=== PATIENT | male | born 1945 | race Caucasian/White ===

== ENCOUNTER 2016-12-23 07:31 | Day surgery (SDC) | payer MEDICARE ==
[~2016-12-23] VITALS: Ht 165.1 cm; Wt 73.8 kg
[~2016-12-23 07:31] MED LIST: AMLO5TAB2 PO; ASPI-557 PO; CHOL100092 PO; CYCL-83 PO; ESOM20SU PO; ESZO3TAB PO; FISH1CAP59 PO; HYDR-4246 PO; LIDOCAINE 1% (10mg/ml) 2ml SDV INJ ONE; LISI-621 PO; LR 1,000 ML IV SCH; MECL-103 PO; MELO-28 PO; METO-230 PO; MULT-933 PO; POLY17PO6 PO
--- OUTSIDE RECORDS SUMMARY | 2016-12-23 07:35 | XMS REPORT | Continuity of Care Document ---
Author Author [facility] Organization [facility] Address Unknown Phone Unavailable Support Name Relationship Address Phone AUSTYN ZAPIEN FACS, MD Caregiver [address] [place] [address] [place] [phone] SERGIO DIAZ MD Caregiver [address] [place] [address] [place] [phone] VISHNU CLEVELAND Next Of Kin [address] [place] [address] Insurance Providers Payer Name Policy Number Subscriber Name Relationship Medicare [id number] AlinaGene R 18 Self [facility] [id number] AlinaGene R 18 Self Advance Directives Directive Response Recorded Date/Time Dr Khan Resuscitation Status Full Code 11/28/14 2:51pm Resuscitation Documents on File No 11/28/14 2:20pm Problems No known problems or medical conditions. Medications Medication Dose Route Sig Days/Qty Instructions Order Date Discontinued Date Status Cyclobenzaprine Hcl 10 Mg PO NEEDED 06/17/11 Active Meloxicam 7.5 Mg PO TWICE A DAY 06/17/11 Active Esomeprazole Mag Trihydrate 20 Mg PO TWICE A DAY 06/17/11 Active Lamotrigine 150 Mg PO TWICE A DAY 06/17/11 Active Eszopiclone 2 Mg PO NEEDED 06/17/11 Active Cholecalciferol 1,000 Unit PO DAILY 06/17/11 Active Fish Oil/Gilman-3 Fatty Acids 1 Cap PO DAILY 06/17/11 Active Social History Social History Problem Response Recorded Date/Time Chewing Tobacco Status No 11/25/2013 10:24am Hx Substance Use No 11/28/2014 2:13pm Hx Alcohol Use N ALCOHOLISM SOBER 40 YEARS 11/28/2014 2:13pm Has the pt used tobacco in the last 12 months No 12/01/2014 7:05am Query Response Start Date Stop Date Smoking Status Former smoker Hospital Discharge Instructions No hospital discharge instructions. Plan of Care No plan of care. Functional Status No functional status results. Allergies, Adverse Reactions, Alerts Allergen Type Severity Reaction Status Last Updated No Known Drug Allergies Allergy Active 06/17/11 Immunizations Name Given Type Hx Influenza Vaccination Y FALL 2013 Historical Hx Pneumococcal Vaccination No Historical Hx Influenza Vaccination Y FALL 2013 Historical Vital Signs Acute Vital Signs Vital Response Date/Time Temperature (Fahrenheit) 98.9 deg F (96.8 - 99.1) Temperature (Calculated Celsius) 37.26596 degrees C (36.0 - 37.3) Temperature Source Temporal Pulse Rate (adult) 62 bpm (60 - 100) Respiratory Rate 16 breaths/min (10 - 20) O2 Sat by Pulse Oximetry 95 % (90 - 100) Oxygen Delivery Method Room Air Blood Pressure 166/91 mm Hg Blood Pressure Source Automatic Cuff Height 5 ft 6 in Weight 164 lb Body Mass Index 26.0 kg/m^2 Results Test Source Date Result Interp. Ref. Range Comments Anion Gap August 17, 2011 8:03am 8 MEQ/L N 5-15 BUN/Creatinine Ratio August 17, 2011 8:03am 11 RATIO N 6-26 Basophils # (Auto) August 17, 2011 8:03am 0.0 T/MM3 N 0-0.2 Basophils (%) (Auto) August 17, 2011 8:03am 0.2 % N 0-2 Blood Urea Nitrogen August 17, 2011 8:03am 10.0 MG/DL N 9-20 Calcium Level August 17, 2011 8:03am 8.3 MG/DL L 8.4-10.2 Calculated Osmolality August 17, 2011 8:03am 267 MOSM/KG N 261-280 Carbon Dioxide Level August 17, 2011 8:03am 28 MEQ/L N 22-30 Chloride Level August 17, 2011 8:03am 103 MEQ/L N 98-107 Creatinine August 17, 2011 8:03am 0.9 MG/DL N 0.8-1.5 Eosinophils # (Auto) August 17, 2011 8:03am 0.1 T/MM3 N 0-0.5 Eosinophils (%) (Auto) August 17, 2011 8:03am 0.4 % N 0-4 Glucose Level August 17, 2011 8:03am 100 MG/DL N 75-110 Hematocrit August 17, 2011 8:03am 33.5 % L 41-53 Hemoglobin August 17, 2011 8:03am 10.7 GM/DL L 13.5-17.5 Lymphocytes # (Auto) August 17, 2011 8:03am 1.4 T/MM3 N 1-4.8 Lymphocytes (%) (Auto) August 17, 2011 8:03am 10.0 % L 23-45 Mean Corpuscular Hemoglobin August 17, 2011 8:03am 22.3 UUG L 26-34 Mean Corpuscular Hemoglobin Concent August 17, 2011 8:03am 31.9 GM/DL N 31-37 Mean Corpuscular Volume August 17, 2011 8:03am 69.9 UM3 L 80-100 Mean Platelet Volume August 17, 2011 8:03am 9.6 UM3 N 9.4-12.4 Monocytes # (Auto) August 17, 2011 8:03am 1.4 T/MM3 H 0-0.8 Monocytes (%) (Auto) August 17, 2011 8:03am 10.1 % H 0-9.0 Neutrophils # (Auto) August 17, 2011 8:03am 11.1 T/MM3 H 1.8-7.7 Neutrophils (%) (Auto) August 17, 2011 8:03am 79.1 % H 33-66 Platelet Count August 17, 2011 8:03am 377 T/MM3 N 130-400 Potassium Level August 17, 2011 8:03am 3.7 MEQ/L N 3.6-5 RDW Standard Deviation August 17, 2011 8:03am 42.7 FL N 36.9-50.2 Red Blood Count August 17, 2011 8:03am 4.79 M/MM3 N 4.50-5.90 Sodium Level August 17, 2011 8:03am 139 MEQ/L N 134-144 White Blood Count August 17, 2011 8:03am 14.1 T/MM3 H 4.5-11.0 Glomerular Filtration Rate Calc August 17, 2011 8:03am 84 - Immature Granulocyte # (Auto) August 17, 2011 8:03am 0.03 T/MM3 N 0.00 -0.03 Immature Granulocyte % (Auto) August 17, 2011 8:03am 0.2 % N 0.0-0.5 Procedures Procedure Status Date Provider(s) Esophagogastroduodenoscopy (EGD) with closed biopsy completed 12/01/14 AUSTYN ZAPIEN MD, FACS, CWS
--- OUTSIDE RECORDS SUMMARY | 2016-12-23 07:35 | XMS REPORT | Referral Summary ---
Author Author [facility] Organization [facility] Address Unknown Phone Unavailable Care Team Providers Care Extrusion Machine Operator Name Role Phone Salas Urena Primary Care Physician [phone] Encounter [facility] [id number] Date(s): 11/04/15 - 11/04/15 [facility] [address] [place] [address] Discharge Diagnosis: Tinea corporis Discharge Diagnosis: Ibarra's esophagus Discharge Diagnosis: Gastroesophageal reflux disease Discharge Diagnosis: Benign positional vertigo Discharge Diagnosis: Benign essential HTN Discharge Disposition: 01-Home or Self Care Attending Physician: Domenico Urena MD Admitting Physician: Domenico Urena MD Vital Signs Most recent to 1 oldest [Reference Range]: Temperature Tympanic 34.9 degC [36.6-38.1 degC] *LOW* (11/04/15 8:33 AM) Peripheral Pulse 76 bpm Rate [60-100 bpm] (11/04/15 8:33 AM) Blood Pressure 122/70 mmHg [90-140/60-90 mmHg] (11/04/15 8:33 AM) Problem List Condition Effective Dates Status Health Status Informant Alcoholism(Confirmed Active ) Ibarra's esophagus Active (disorder)(Confirmed ) Chicken Active pox(Confirmed) Generalized Active osteoarthritis (disorder)(Confirmed ) Depression(Confirmed Active ) Dysphagia Active (disorder)(Confirmed ) Gastroesophageal Active reflux disease (disorder)(Confirmed ) Head Active trauma(Confirmed) Hearing Active loss(Confirmed) Hiatal 2010 Active hernia(Confirmed) Hip 1989 Active fracture(Confirmed) Injury(Confirmed)1 Active Osteoarthritis(Confi Active rmed) Colon cancer 2008 Active Screening(Confirmed) 1head trama Allergies, Adverse Reactions, Alerts No Known Medication Allergies Medications Ambien 5 mg oral tablet 5 mg 1 tabs, Oral, Bedtime (once a day), as needed for sleep, [place] [address] [place] [address], # 30 tabs, 0 Refill(s) Start Date: 11/04/15 Status: Ordered amLODIPine 10 mg oral tablet 10 mg 1 tabs, Oral, Daily, PT. IS DUE FOR A MED. CK APPT., # 30 tabs, 0 Refill(s ), Pharmacy: [facility] #[id number], 1 tabs Oral Daily,Instr:PT. IS DUE FOR A MED. CK APPT. Start Date: 10/28/15 Status: Ordered aspirin 81 mg oral tablet 1 tabs, Oral, Daily, # 90 tabs, 0 Refill(s) Start Date: 06/17/14 Status: Ordered Augmentin XR Oral, q12hr, 0 Refill(s) Start Date: 10/05/15 Status: Ordered cyclobenzaprine 10 mg oral tablet See Instructions, TAKE ONE TABLET BY MOUTH THREE TIMES A DAY NEEDED, # 40 tabs, 1 Refill(s), eRx: [facility] #[id number], TAKE ONE TABLET BY MOUTH THREE TIMES A DAY NEEDED Start Date: 10/19/15 Status: Ordered Fish Oil 1200 mg oral capsule caps, Oral, TID, 0 Refill(s) Start Date: 06/17/14 Status: Ordered lisinopril 20 mg oral tablet 20 mg 1 tabs, Oral, Daily, PT. IS DUE FOR A MED. CK VISIT., # 30 tabs, 0 Refill( s), Pharmacy: [facility] #[id number] Start Date: 10/28/15 Status: Ordered Lotrisone 1%-0.05% topical cream 1 kisha, Topical, BID, # 30 g, 0 Refill(s), Pharmacy: [facility] #[id number] Start Date: 11/04/15 Status: Ordered meclizine TID, as needed for dizziness, 0 Refill(s) Start Date: 10/05/15 Status: Ordered Mobic 7.5 mg oral tablet See Instructions, TAKE ONE TABLET BY MOUTH TWICE A DAY, # 60 tabs, 1 Refill(s), eRx: [facility] #[id number], TAKE ONE TABLET BY MOUTH TWICE A DAY Start Date: 09/28/15 Status: Ordered multivitamin Daily, 0 Refill(s) Start Date: 06/17/14 Status: Ordered NexIUM 20 mg oral delayed release capsule See Instructions, TAKE ONE CAPSULE BY MOUTH TWICE A DAY, # 60 caps, 5 Refill(s) , eRx: [facility] #[id number], TAKE ONE CAPSULE BY MOUTH TWICE A DAY Start Date: 06/01/15 Status: Ordered [place] 5 mg-325 mg oral tablet See Instructions, take 1-2 tablets by mouth every 6hours as needed, # 60 tabs, 0 Refill(s) Start Date: 11/04/15 Status: Ordered polyethylene glycol 3350 oral powder for reconstitution See Instructions, MIX 1 CAPFUL (17G) WITH 8 OUNCES OF WATER, JUICE, SODA, COFFEE , OR TEA AND DRINK DAILY, # 527 unknown unit, 5 Refill(s), eRx: [facility] #[id number], MIX 1 CAPFUL (17G) WITH 8 OUNCES OF WATER, JUICE, SODA, COFFEE , OR TEA AND DRINK... Start Date: 06/01/15 Status: Ordered Vitamin D3 1000 intl units oral tablet 1 tabs, Oral, Daily, # 30 tabs, 0 Refill(s) Start Date: 06/17/14 Status: Ordered Results No data available for this section Immunizations Vaccine Date Refusal Reason influenza virus vaccine, inactivated 06/07/14 influenza virus vaccine, live 06/28/13 influenza virus vaccine, live 10/06/12 tetanus/diphtheria/pertussis, acel(Tdap) 10/12/13 Procedures Procedure Date Related Diagnosis Body Site Esophagogastroduodenoscopy and biopsy1 12/01/14 Esophagogastroduodenoscopy2 2013 Esophagogastroduodenoscopy3 2012 Esophagogastroduodenoscopy 06/2011 Colonoscopy4 04/2009 Bone graft5 1989 Hip replacement6 1988 Appendectomy 1957 Ricardo fundoplication Vasectomy 1No Cancer Given th fact Pathology unable to state if Dysplasia present Repeat EGD 1yr. 2with circumferential biopies 3with bx, consistent with Ibarra's, stay on PPI, repeat in [address] Kaushal vallecillo 5left hip 6left Social History Social History Type Response Smoking Status Former smoker; Type: Cigarettes; Total pack years: 30 Assessment and Plan Extracted from: Title: Office Visit Note Author: Domenico Urena MD Date: 11/04/15 Assessment/Plan Ibarra's esophagus, Ibarra's esophagus without dysplasia He is scheduled for EGD and follow up with Dr. Maggy Marcano. I encouraged him to keep that appointment. Ordered: Office Visit Level 4 Est 79895 Benign essential HTN, Essential (primary) hypertension Blood pressure appears to be well controlled. No change in current treatment recommended. Follow-up in 3 months. Ordered: Office Visit Level 4 Est 78345 Benign paroxysmal vertigo, unspecified ear, Benign positional vertigo Overall this is improving I thinkgiving it more time hisappropriate. I see no obvious signs of sinus infection. No further treatment at this time. Ordered: Office Visit Level 4 Est 49253 Gastro-esophageal reflux disease without esophagitis, Gastroesophageal reflux disease Chronic stable no change in current treatment. Ordered: Office Visit Level 4 Est 10034 Tinea corporis Lotrisone cream applied twice a day until clear Orders: clotrimazole-betamethasone topical, 1 kisha, Topical, BID, # 30 g, 0 Refill(s), Pharmacy: [facility] #[id number] HYDROcodone-acetaminophen, See Instructions, take 1-2 tablets by mouth every 6hours as needed, # 60 tabs, 0 Refill(s) zolpidem, 5 mg 1 tabs, Oral, Bedtime (once a day), as needed for sleep, [address], # 30 tabs, 0 Refill(s) Seborrheic keratoses He'll make an appointment to have these frozen in the next few weeks. Insomnia Discontinue Lunesta tryAmbien 5 mg daily at bedtime.
--- OUTSIDE RECORDS SUMMARY | 2016-12-23 07:35 | XMS REPORT | Summary of Care ---
Author Author Jay Jay Kathleen M.D. Unknown Address Unknown Phone Unavailable Care Team Providers Care Administrative Specialist Name Role Phone Hever Cano, Madie Unavailable Unavailable Kaushal Cano, YARIEL, ,, A Unavailable Unavailable No Assigned PCP-Pt Confirmed Unavailable Unavailable Unavailable Unavailable Functional Status Name Dates Details Functional status health issues are not documented Status: Name Dates Details Cognitive status health issues are not documented Status: Problems Name Dates Details Ibarra's esophagus (530.85, K22.70) Status: Active Dizziness (780.4, R42) Status: Active Chronic sinusitis (473.9, J32.9) Status: Active Bilateral impacted cerumen (380.4, H61.23) Status: Active Medications Name Dates Details PriLOSEC 20 MG CPDR Active Zantac 150 Maximum Strength TABS * Refills: 0 Active LaMICtal 150 MG Oral Tablet * Refills: 0 Active Fish Oil 1200 MG Oral Capsule * Refills: 0 Active Psyllium 500 MG CAPS * Refills: 0 Active Metoclopramide HCl - 10 MG Oral Tablet TAKE 1 TABLET 4 TIMES DAILY, BEFORE MEALS AND AT BEDTIME. * Quantity: 120 Refills: 0 Kaushal Cano, YARIEL, , , Chavarria A * Start Active NexIUM 40 MG Oral Capsule Delayed Release TAKE 1 CAPSULE DAILY. * Quantity: 30 Refills: 3 Kaushal Yanez., FACS, , , Chavarria A * Start Active Golytely 236 GM Oral Solution Reconstituted TAKE DIRECTED. * Quantity: 1 Refills: 0 Kaushal Yanez., FACS, , , Chavarria A * Start Active 4000 ML Bottle Citrate of Magnesia Oral Solution 1 BOTTLE DIRECTED * Quantity: 1 Refills: 0 Kaushal Yanez., FACS, , , Chavarria A * Start Active 300 ML Bottle Allergies and Adverse Reactions Name Dates Details No Known Drug Allergies (Allergy) Status: Active Past Medical History Name Dates Details History of hiatal hernia (V12.79, Z87.19) Status: Resolved Procedures Procedure Dates Details History of Surgery Vas Deferens Vasectomy History of Appendectomy History of Hip Surgery Procedures not documented Immunization Name Dates Details Immunizations not documented Family History Name Dates Details Family history of Acute Myocardial Infarction (V17.3) Status: Active Name Dates Details Family history of Cancer Status: Active Social History Name Dates Details - Status: Name Dates Details Former smoker Vital Signs Date Test Result Details No Known Vitals to report Results Date Description Value Details Results not documented Plan of Care Name Dates Details Planned Observations Planned Goals not documented Instructions Name Dates Details Instructions not documented Encounters Appointment; Jay Jay Kathleen M.D. Encounter Diagnosis: Problem not documented On 07-Oct-2015 14:45
--- OUTSIDE RECORDS SUMMARY | 2016-12-23 07:36 | XMS REPORT ---
Author Author [facility] SYSTEM Organization Unknown Address Unknown Phone Unavailable Care Team Providers Care Fitness Attendant Name Role Phone [facility] Unavailable Reason For Visit Reason for Visit from 09/29/2015 1:18 PM:* Pt Stated Reason for Adm : vertigo, bilateral sinusitis Chief Complaint VERTIGO, BILATERAL FRONTAL AND EGHMOID,SINUSITIS Social History Social History from 09/30/2015 11:54 AM:* Tobacco Use? : Former Smoker Social History from 09/29/2015 1:18 PM:* Tobacco Use? : Former Smoker Functional Status Functional Status from 09/30/2015 9:20 AM:* LOC : Alert * Oriented To : Person,Place,Time,Event * Weight Bearing Status : Full * Assist Level : Partial * # Assists : 1 Functional Status from 09/29/2015 8:05 PM:* LOC : Alert * Oriented To : Person,Place,Time,Event * Weight Bearing Status : Full * Assist Level : Partial * # Assists : 1 Functional Status from 09/29/2015 1:18 PM:* LOC : Alert * Oriented To : Person,Place,Time,Event * Weight Bearing Status : Full * Assist Level : Independent * # Assists : 1 Vital Signs Hospital Vital Signs from 09/30/2015 11:27 AM:* Height : 5/6 ft,in * Temperature : 98.0 F * Pulse : 96 * Respirations : 20 * BP : 157/94 Hospital Vital Signs from 09/30/2015 10:04 AM:* Height : 5/6 ft,in Hospital Vital Signs from 09/30/2015 7:35 AM:* Height : 5/6 ft,in * Temperature : 96.5 F * Pulse : 93 * Respirations : 20 * BP : 189/103 Hospital Vital Signs from 09/30/2015 4:05 AM:* Heart Rate : 98 Hospital Vital Signs from 09/30/2015 3:25 AM:* Weight : 74.4/ kg * Height : 5/6 ft,in * Temperature : 97.1 F * Pulse : 95 * Respirations : 20 * BP : 139/97 Hospital Vital Signs from 09/29/2015 11:32 PM:* Heart Rate : 89 Hospital Vital Signs from 09/29/2015 10:05 PM:* Height : 5/6 ft,in * Temperature : 98.1 F * Pulse : 88 * Respirations : 20 * BP : 134/70 Hospital Vital Signs from 09/29/2015 8:05 PM:* Heart Rate : 93 Hospital Vital Signs from 09/29/2015 7:07 PM:* Height : 5/6 ft,in * Temperature : 98.5 F * Pulse : 90 * Respirations : 20 * BP : 179/92 Hospital Vital Signs from 09/29/2015 3:30 PM:* Height : 5/6 ft,in * Temperature : 98.1 F * Pulse : 72 * Respirations : 20 * BP : 204/108 Hospital Vital Signs from 09/29/2015 1:18 PM:* Weight : 74.7/ kg * Height : 5/6 ft,in Hospital Vital Signs from 09/29/2015 1:05 PM:* Weight : 74.7/ kg * Height : 5/6 ft,in * Temperature : 97.9 F * Pulse : 77 * Respirations : 20 * BP : 200/103 Results Chemistry from 09/30/2015 5:17 AMSODIUM 136 MMOL/L (136-145 MMOL/L) POTASSIUM 3.8 MMOL/L (3.5-5.1 MMOL/L) CHLORIDE 102 MMOL/L (98-107 MMOL/L) TCO2 25.2 MMOL/L (21.0-32.0 MMOL/L) *ANION GAP 8.8 MMOL/L (8.0-16.0 MMOL/L) BUN 16 MG/DL (7-18 MG/DL) CREATININE 0.85 MG/DL (0.70-1.30 MG/DL) *BUN/CREATININE RATIO 18.8 H (9.1-17.0 ) GLUCOSE 140 MG/DL H (65-99 MG/DL) *GFR EST NON AFR [place] 87 ML/MIN *GFRA EST AFR AMER >90 ML/MIN CALCIUM 8.5 MG/DL (8.5-10.1 MG/DL) ALBUMIN 3.6 GM/DL (3.4-5.0 GM/DL) PHOSPHORUS 2.9 MG/DL (2.6-4.7 MG/DL) Problems Encounter Diagnosis * Fall Risk Status:Active. * Nausea & Vomiting Status:Active. Encounters Encounter Diagnosis * Fall Risk Status:Active. * Nausea & Vomiting Status:Active. Plan of Care Follow-up Appointments from 09/30/2015 11:54 AM:* #1 Office appointment: : Dr Kathleen * #1 Date/Time : 10/07/2015 2:45 PM * Address # 1 : [facility]: [facility] [place], [place]- [phone] or * #2 Office appointment: : Primary care jenniferan in 1 week Procedures * Completed , on 01/12/2009 12:00 AM Immunizations No immunizations administered or ordered. Hospital Course Hospital Discharge Instructions How to care for yourself at home from 09/30/2015 11:54 AM:* Discharge Activity : Activity as tolerated,May Shower * Discharge Diet : As before hospitalization * Call your doctor if: : Fever over 101 F or severe chills,Chest pain or other unexplained symptoms,Tingling or numbness develops,A sudden increase or decrease in weight,You have persistent or worsening symptoms,If you have Heart Failure and you gain 3 pounds within 1 week or your symptoms worsen. (Weigh at home tomorrow morning) * Specific Discharge Teaching Instructions provided: : Yes * Discharge on Warfarin : No Allergies, Adverse Reactions, Alerts * No Latex Allergy. * No IV Contrast Allergy. * No Known Drug Allergies. * No Known Food Allergies. * No Known Allergies. Medication It is the responsibility of the patient or patient insurance claims representative to confirm the list of medications with either the patient's personal care provider or the patient's follow-up care provider to ensure the patient has an appropriate list of medications to take at home. Discharge medications New medications* lisinopril (Prinivil) 20 mg Tablet, Ordered By: JASE LOFTON MD Directions: 1 tablet oral daily * amLODIPine (NorvASC) 10 mg Tablet, Ordered By: JASE LOFTON MD Directions: 1 tablet oral daily every morning * amoxicillin-pot clavulanate 875 mg-125 mg Tablet, Ordered By: JASE LOFTON MD Directions: 1 tablet oral every twelve hours Additional Instructions: TAKE WITH FOOD IF STOMACH UPSET. * meclizine 25 mg Tablet, Ordered By: JASE LOFTON MD Directions: 1 tablet oral three times a day Continued medications* cyclobenzaprine 10 mg Tablet, Ordered By: JASE LOFTON MD Directions: 1 tablet oral three times a day * esomeprazole magnesium (NexIUM) 20 mg capsule,delayed release(DR/EC), Ordered By: JASE LOFTON MD Directions: 1 capsule oral twice a day * eszopiclone 3 mg Tablet, Ordered By: JASE LOFTON MD Directions: 1 tablet oral daily at bedtime PRN insomnia * meloxicam 7.5 mg Tablet, Ordered By: JASE LOFTON MD Directions: 1 tablet oral twice a day * polyethylene glycol 3350 17 gram/dose Powder, Ordered By: JASE LOFTON MD Directions: 1 each oral daily Stopped medications* None
--- OUTSIDE RECORDS SUMMARY | 2016-12-23 07:36 | XMS REPORT | Continuity of Care Document ---
Author Author David Howell MA [facility] Address [address] [place] [id number] Phone Unavailable Care Team Providers Care Bed Operator Name Role Phone Romel Domenico CHRISTY Unavailable Payers Payer name Insurance type Covered libertarian ID Authorization(s) Unknown Problems Condition Effective Dates (start - stop) Clinical Status GERD - *Chronic DYSPHAGIA NOS - *Chronic ESCOBAR'S ESOPHAGUS - *Chronic Osteoarthrosis, generalized, involving unspecified site - * Chronic Constipation - *Chronic Dysphagia - *Acute GERD - *Chronic Escobar esophagus - *Chronic ESCOBAR'S ESOPHAGUS - *Chronic Osteoarthrosis, generalized, involving unspecified site - * Chronic ESCOBAR'S ESOPHAGUS - *Chronic DYSPHAGIA NOS - *Chronic GERD - *Chronic Impacted cerumen - *Chronic Family History Family Member Diagnosis Age At Onset Status Sister (Unknown) Alcoholism Yes Son (Unknown) Alcoholism Yes Brother (Unknown) Alcoholism Yes Social History Social History Element Description Quantity Unknown Allergies, Adverse Reactions, Alerts Substance Reaction Severity Status Unknown Medications Medication Instructions Dosage Effective Dates (start - stop) Status Miralax 17 gram/dose Oral Powder take (17G) by oral route every day mixed with 8 oz. water, juice, soda, coffee or tea 17 G - Active herbal drugs tablet one twice a day - Active Mobic 7.5 mg tablet Take 1 tablet by mouth twice a day. - Active Nexium 20 mg capsule,delayed release Take 1 capsule by mouth twice a day. - Active cyclobenzaprine 10 mg tablet Take 1 tablet by mouth 3 times a day as needed. - Active [place] 5 mg-325 mg tablet TAKE 1-2 TABLETS BY MOUTH EVERY 6 HOURS NEEDED - Active Immunizations Vaccine Date Status Comments flu (split) (3 yrs or older) completed - Completed reason: public agency flu (split) (3 yrs or older) completed - Completed reason: public agency Results Test Name Date and Time Measure Units Reference Range Abnormal Flag Comments Panel Description: CBC WBC 08:48:00 7.5 K/uL 4.8-10.8 RBC 08:48:00 5.33 M/uL 4.60-6.20 HGB 08:48:00 15.1 g/dl 14.0-18.0 HCT 08:48:00 44.6 % 42.0-52.0 MCV 08:48:00 83.7 fL 82.0-99.0 MCH 08:48:00 28.3 pg 27.0-32.0 MCHC 08:48:00 33.9 g/dL 32.0-36.0 RDW 08:48:00 13.4 % 11.5-14.5 MPV 08:48:00 10.8 fL 8.8-14.8 Platelet Count 08:48:00 297 K/uL 150-400 Immature Granulocytes 08:48:00 0.1 % 0.0-1.0 Absolute Neutrophils 08:48:00 4.92 THOUS 1.90-7.00 Absolute Lymphocytes 08:48:00 1.55 THOUS 0.80-3.30 Absolute Monocytes 08:48:00 0.62 THOUS 0.30-1.00 Absolute Eosinophils 08:48:00 0.38 THOUS 0.00-0.50 Absolute Basophils 08:48:00 0.04 THOUS 0.00-0.20 Neutrophils 08:48:00 66 % 51-75 Lymphocytes 08:48:00 21 % 20-46 Monocytes 08:48:00 8 % 4-11 Eosinophils 08:48:00 5 % 0-4 H Basophils 08:48:00 1 % 0-2 Testing performed at [facility] [address] [place], [place] [id number] Parliamentary Librarian bAel Smith MD Panel Description: Chemistry Profile Glucose 08:48:00 102 mg/dL 70-99 H BUN 08:48:00 18 mg/dL 8-26 Creatinine 08:48:00 1.01 mg/dL 0.72-1.25 Calcium 08:48:00 10.0 mg/dL 8.9-10.5 Sodium 08:48:00 138 mEq/L 135-144 Potassium 08:48:00 4.9 mEq/L 3.5-5.2 Chloride 08:48:00 103 mEq/L 99-111 CO2 08:48:00 27 mEq/L 23-31 Albumin 08:48:00 4.2 g/dL 3.4-4.8 Bilirubin Total 08:48:00 0.4 mg/dL 0.2-1.2 Alkaline Phosphatase 08:48:00 104 U/L 40-150 Protein 08:48:00 7.2 g/dL 6.2-8.1 ALT (SGPT) 08:48:00 20 U/L 0-55 AST (SGOT) 08:48:00 22 U/L 5-34 Anion Gap 08:48:00 8 3-20 Globulin 08:48:00 3.0 g/dL 1.8-4.0 Testing performed at [facility] [address] [place] [id number] Parliamentary Librarian Abel Smith MD Panel Description: Lipid Profile-[facility] Cholesterol 08:48:00 208 mg/dL 0-199 H Triglycerides 08:48:00 116 mg/dL 0-149 HDL Cholesterol 08:48:00 45 mg/dL 40-84 LDL Cholesterol 08:48:00 140 mg/dL 0-130 H VLDL Cholesterol 08:48:00 23 mg/dL 0-28 Cardiac Risk 08:48:00 4.6 0.0-5.7 Testing performed at [facility] [address] [place] [id number] Parliamentary Librarian Abel Smith MD Panel Description: Non-HDL Cholesterol-[facility] Non-HDL Cholesterol 08:48:00 163 mg/dL 0-159 H Testing performed at [facility] [address] [place] [address] Parliamentary Librarian Abel Smith MD Panel Description: EGFR-[facility] eGFR 08:48:00 >60 mL/min >60 Multiply eGFR results by 1.21 for race.Testing performed at [facility] [address] [place] [address] Parliamentary Librarian Abel Smith MD Panel Description: Prostatic Specific Antigen-[facility] PSA 08:48:00 1.6 ng/mL 0.0-4.5 AUA PSA Best Practice Guidelines: Age-Adjusted PSA Values by Ethnic GroupAge Range Asians - Caucasians [id number] 0-2.0 0-2.0 0-2.550-59 0-3.0 0-4.0 0-3.560-69 0-4.0 0-4.5 0-4.570-79 0-5.0 0-5.5 0-6.5Testing performed at [facility] [address] [place] [address] Parliamentary Librarian Abel Smith MD Vital Signs Date / Time: Height Weight Pulse Rate Blood Pressure Temperature /08:09:00 65.50 in 160.00 lbs 76 /min 136/84 mm[Hg] 97.4 F Procedures Procedure Date Unknown Encounters Encounter Location Date Patient Visit [facility] Patient Visit [facility] Patient Visit [facility] Patient Visit [facility] Patient Visit [facility] Patient Visit [facility] New Surg Patient Visit [facility] Patient Visit [facility] FC ENT Patient Visit [facility] Patient Visit [facility] Advance Directives Directive Effective Date Unknown
--- OUTSIDE RECORDS SUMMARY | 2016-12-23 07:36 | XMS REPORT | Referral Summary ---
Author Author [facility], [facility] Organization [facility] Address Unknown Phone Unavailable Care Team Providers Care Sandwich Wrapper Name Role Phone Salas Urena Primary Care Physician [phone] Encounter VC Date(s): 11/30/15 - 11/30/15 [facility], [address] [place] [id number] Discharge Diagnosis: Seborrheic keratoses, inflamed Discharge Disposition: 01-Home or Self Care Attending Physician: Domenico Urena MD Admitting Physician: Domenico Urena MD Vital Signs Most recent to 1 oldest [Reference Range]: Temperature Tympanic 36.0 degC [36.6-38.1 degC] *LOW* (11/30/15 8:35 AM) Peripheral Pulse 84 bpm Rate [60-100 bpm] (11/30/15 8:35 AM) Respiratory Rate 16 br/min [14-20 br/min] (11/30/15 8:35 AM) Blood Pressure 134/80 mmHg [90-140/60-90 mmHg] (11/30/15 8:35 AM) Problem List Condition Effective Dates Status [...] a day), as needed for sleep, [address] [facility], # 30 tabs, 0 Refill(s) Start Date: 11/04/15 Status: Ordered amLODIPine 10 mg oral tablet See Instructions, TAKE ONE TABLET BY MOUTH DAILY * PT DUE FOR MED CHECK*, # 30 tabs, 2 Refill(s), eRx: [facility] #[id number], TAKE ONE TABLET BY MOUTH DAILY * PT DUE FOR MED CHECK* Start Date: 11/24/15 Status: Ordered aspirin 81 mg oral tablet 1 tabs, Oral, Daily, # 90 tabs, 0 Refill(s) Start Date: 06/17/14 Status: Ordered cyclobenzaprine 10 mg oral tablet See Instructions, TAKE ONE TABLET BY MOUTH THREE TIMES A DAY NEEDED, # 40 tabs, 1 Refill(s), eRx: [facility] #[id number], TAKE ONE TABLET BY MOUTH THREE TIMES A DAY NEEDED Start Date: 10/19/15 Status: Ordered Fish Oil 1200 mg oral capsule caps, Oral, TID, 0 Refill(s) Start Date: 06/17/14 Status: Ordered lisinopril 20 mg oral tablet See Instructions, TAKE ONE TABLET BY MOUTH DAILY *PT DUE FOR MED CHECK*, # 30 tabs, 2 Refill(s), eRx: [facility] #[id number], TAKE ONE TABLET BY MOUTH DAILY *PT DUE FOR MED CHECK* Start Date: 11/24/15 Status: Ordered Lotrisone 1%-0.05% topical cream 1 kisha, Topical, BID, # 30 g, 0 Refill(s), Pharmacy: [facility] #[id number] Start Date: 11/04/15 Status: Ordered meclizine TID, as needed for dizziness, 0 Refill(s) Start Date: 10/05/15 Status: Ordered Mobic 7.5 mg oral tablet See Instructions, TAKE ONE TABLET BY MOUTH TWICE A DAY, # 60 tabs, 1 Refill(s), eRx: [facility] #[id number], TAKE ONE TABLET BY MOUTH TWICE A DAY Start Date: 09/28/15 Status: Ordered multivitamin Daily, 0 Refill(s) Start Date: 06/17/14 Status: Ordered NexIUM 20 mg oral delayed release capsule 20 mg 1 caps, Oral, BID, # 60 caps, 5 Refill(s), Pharmacy: [facility] # [id number], 1 caps Oral BID Start Date: 11/26/15 Status: Ordered [place] 5 mg-325 mg oral tablet See Instructions, take 1-2 tablets by mouth every 6hours as needed, # 60 tabs, 0 Refill(s) Start Date: 11/04/15 Status: Ordered polyethylene glycol 3350 oral powder for reconstitution See Instructions, MIX 1 CAPFUL (17G) WITH 8 OUNCES OF WATER, JUICE, SODA, COFFEE , OR TEA AND DRINK DAILY, # 527 unknown unit, 5 Refill(s), eRx: [facility] #[id number], MIX 1 CAPFUL (17G) WITH 8 OUNCES [...] stay on PPI, repeat in 1 year 4noDr. Kaushal moy 5left hip 6left Social History Social History Type Response Smoking Status Former smoker; Type: Cigarettes; Total pack years: 30 Assessment and Plan Extracted from: Title: Office Visit Note Author: Domenico Urena MD Date: 11/30/15 Assessment/Plan Seborrheic keratoses, inflamed Each lesionwas frozen forapproximately 90 seconds. He tolerated this well. Natural outcome was reviewed. He'll likely have a sore once these peel off for a small period of time and then they should heal up and do fine. If they recur or don't clear he'll let me know. We did talk about the smallspot he has on his right lower cheek I think this would need to beexcised. He'll think about whether he wants to do that and let us know. Ordered: Destruction 2-14 Lesions Destruction benign lesion, any methd, 1st
--- OUTSIDE RECORDS SUMMARY | 2016-12-23 07:36 | XMS REPORT | Referral Summary ---
Author Author [facility] Organization [facility] Address Unknown Phone Unavailable Care Team Providers Care Dog And Cat Food Cook Name Role Phone Salas Urena Primary Care Physician [phone] Encounter Date(s): 12/11/15 - 12/11/15 [facility], [place], Surgery [address] [place] [address] [place] [id number] Discharge Diagnosis: Abnormal upper gastrointestinal barium series Discharge Diagnosis: Chronic vomiting Discharge Diagnosis: Barretts esophagus Discharge Disposition: 01-Home or Self Care Attending Physician: Lenny Jay MD Admitting Physician: Lenny Jay MD Vital Signs Most recent to 1 oldest [Reference Range]: Temperature Tympanic 36.4 degC [36.6-38.1 degC] *LOW* (12/11/15 9:43 AM) Blood Pressure 104/68 mmHg [90-140/60-90 mmHg] (12/11/15 9:43 AM) Problem List Condition Effective Dates Status Health Status Informant Alcoholism(Confirmed Active ) Ibarra's esophagus Active (disorder)(Confirmed ) Chicken Active pox(Confirmed) Generalized Active osteoarthritis (disorder)(Confirmed ) Depression(Confirmed Active ) Dysphagia Active (disorder)(Confirmed ) Gastroesophageal Active reflux disease (disorder)(Confirmed ) Head Active trauma(Confirmed) Hearing Active loss(Confirmed) Hiatal 2011 Active hernia(Confirmed) Hip 1989 Active fracture(Confirmed) Injury(Confirmed)1 Active Osteoarthritis(Confi Active rmed) Colon cancer 2008 Active Screening(Confirmed) 1head trama Allergies, Adverse Reactions, Alerts No Known Medication Allergies Medications Ambien 5 mg oral tablet 5 mg 1 tabs, Oral, Bedtime (once a day), as needed for sleep, [address] [facility], # 30 tabs, 0 Refill(s) Start Date: 11/04/15 Status: Ordered amLODIPine 10 mg oral tablet See Instructions, TAKE ONE TABLET BY MOUTH DAILY * PT DUE FOR MED CHECK*, # 30 tabs, 2 Refill(s), eRx: [facility] #[id number], TAKE ONE TABLET BY MOUTH DAILY * PT DUE FOR MED CHECK* Start Date: 11/24/15 Status: Ordered aspirin 81 mg oral tablet 1 tabs, Oral, Daily, # 90 tabs, 0 Refill(s) Start Date: 06/17/14 Status: Ordered cyclobenzaprine 10 mg oral tablet See Instructions, TAKE ONE TABLET BY MOUTH THREE TIMES A DAY NEEDED, # 40 tabs, 1 Refill(s), eRx: [facility] #[id number], TAKE ONE TABLET BY MOUTH THREE TIMES A DAY NEEDED Start Date: 10/19/15 Status: Ordered Fish Oil 1200 mg oral capsule caps, Oral, TID, 0 Refill(s) Start Date: 06/17/14 Status: Ordered lisinopril 20 mg oral tablet See Instructions, TAKE ONE TABLET BY MOUTH DAILY *PT DUE FOR MED CHECK*, # 30 tabs, 2 Refill(s), eRx: [facility] #[id number], TAKE ONE TABLET BY MOUTH DAILY *PT DUE FOR MED CHECK* Start Date: 11/24/15 Status: Ordered Lotrisone 1%-0.05% topical cream 1 kisha, Topical, BID, # 30 g, 0 Refill(s), Pharmacy: [facility] #[id number] Start Date: 11/04/15 Status: Ordered meclizine TID, as needed for dizziness, 0 Refill(s) Start Date: 10/05/15 Status: Ordered Mobic 7.5 mg oral tablet See Instructions, TAKE ONE TABLET BY MOUTH TWICE A DAY, # 60 tabs, 1 Refill(s), eRx: [facility] #[id number], TAKE ONE TABLET BY MOUTH TWICE A DAY Start Date: 09/28/15 Status: Ordered multivitamin Daily, 0 Refill(s) Start Date: 06/17/14 Status: Ordered NexIUM 20 mg oral delayed release capsule 20 mg 1 caps, Oral, BID, # 60 caps, 5 Refill(s), Pharmacy: [facility] # [id number], 1 caps Oral BID Start Date: 11/26/15 Status: Ordered [place] 5 mg-325 mg oral tablet See Instructions, take 1-2 tablets by mouth every 6hours as needed, # 60 tabs, 0 Refill(s) Start Date: 11/04/15 Status: Ordered polyethylene glycol 3350 oral powder for reconstitution See Instructions, MIX 1 CAPFUL (17G) WITH 8 OUNCES OF WATER, JUICE, SODA, COFFEE , OR TEA AND DRINK DAILY, # 527 unknown unit, 5 Refill(s), eRx: [facility] #[id number], MIX 1 CAPFUL (17G) WITH 8 OUNCES [...] 06/2011 Colonoscopy4 04/2009 Bone graft5 1989 Hip replacement1988 Appendectomy 1957 Ricardo fundoplication Vasectomy 1No Cancer Given th fact Pathology unable to state if Dysplasia present Repeat EGD 1yr. 2with circumferential biopies 3with bx, consistent with Ibarra's, stay on PPI, repeat in [address] Kaushal vallecillo 5left hip 6left Social History Social History Type Response Smoking Status Former smoker; Type: Cigarettes; Total pack years: 30 Assessment and Plan Extracted from: Title: Ambulatory Patient Education Author: Lenny Jay MD Date: 12/10 Family Medicine Esophagogastroduodenoscopy Esophagogastroduodenoscopy (EGD) is a procedure that is used to examine the lining of the esophagus, stomach, and first part of the small intestine ( duodenum). A long, flexible, lighted tube with a camera attached (endoscope) is inserted down the throat to view these organs. This procedure is done to detect problems or abnormalities, such as inflammation, bleeding, ulcers, or growths, in order to treat them. The procedure lasts 520 minutes. It is usually an outpatient procedure, but it may need to be performed in a hospital in emergency cases. LET YOUR HEALTH CARE PROVIDER KNOW ABOUT: Any allergies you have. All medicines you are taking, including vitamins, herbs, eye drops, creams, and [id number]-[id number] medicines. Previous problems you or members of your family have had with the use of anesthetics. Any blood disorders you have. Previous surgeries you have had. Medical conditions you have. RISKS AND COMPLICATIONS Generally, this is a safe procedure. However, problems can occur and include: Infection. Bleeding. Tearing (perforation) of the esophagus, stomach, or duodenum. Difficulty breathing or not being able to breathe. Excessive sweating. Spasms of the larynx. Slowed heartbeat. Low blood pressure. BEFORE THE PROCEDURE Do not eat or drink anything after midnight on the night before the procedure or as directed by your health care provider. Do not take your regular medicines before the procedure if your health care provider asks you not to. Ask your health care provider about changing or stopping those medicines. If you wear dentures, be prepared to remove them before the procedure. Arrange for someone to drive you home after the procedure. PROCEDURE A numbing medicine (local anesthetic) may be sprayed in your throat for comfort and to stop you from gagging or coughing. You will have an IV tube inserted in a vein in your hand or arm. You will receive medicines and fluids through this tube. You will be given a medicine to relax you (sedative). A pain reliever will be given through the IV tube. A mouth guard may be placed in your mouth to protect your teeth and to keep you from biting on the endoscope. You will be asked to lie on your left side. The endoscope will be inserted down your throat and into your esophagus, stomach, and duodenum. Air will be put through the endoscope to allow your health care provider to clearly view the lining of your esophagus. The lining of your esophagus, stomach, and duodenum will be examined. During the exam, your health care provider may: Remove tissue to be examined under a microscope (biopsy) for inflammation , infection, or other medical problems. Remove growths. Remove objects (foreign bodies) that are stuck. Treat any bleeding with medicines or other devices that stop tissues from bleeding (hot cautery, clipping devices). Widen (dilate) or stretch narrowed areas of your esophagus and stomach. The endoscope will be withdrawn. AFTER THE PROCEDURE You will be taken to a recovery area for observation. Your blood pressure , heart rate, breathing rate, and blood oxygen level will be monitored often until the medicines you were given have worn off. Do not eat or drink anything until the numbing medicine has worn off and your gag reflex has returned. You may choke. Your health care provider should be able to discuss his or her findings with you. It will take longer to discuss the test results if any biopsies were taken. This information is not intended to replace advice given to you by your health care provider. Make sure you discuss any questions you have with your health care provider. Document Released: 12/22/2005 Document Revised: 06/09/2015 Document Reviewed: [facility] Patient Information 2015 [employer]. No follow up information was provided. Extracted from: Title: Office Visit Note Author: Lenny Jay MD Date: 12/11/15 Assessment/Plan 1.Barretts esophagus Ordered: Office Visit Level 4 Est 01739 2.Chronic vomiting Ordered: Office Visit Level 4 Est 34140 3.Abnormal upper gastrointestinal barium series Ordered: Office Visit Level 4 Est 41536 Plan: Repeat EGD in 1 year, option oftrying a promotilityagent such as Reglandiscussed with patient andwife. Encouraged patient to obtain new dentures. I did go over hisEGDreport and pathology report with him. Upon upper endoscopyhe was found to have Ibarra's esophagusin conjunction with a considerable amount of retainedfoodwithin his esophagus and stomach. There was very large food boluses present within his esophagus. Pathology did return revealing evidence for Ibrara's with low-grade dysplasia. UpperGI did revealsignificant retainedmaterial within the esophagus stomach. There was also a questionable filling defect noted within the duodenum. I did not note any mucosal abnormality is within the duodenal bulb. I informed the patient that I felt that would be best for him to eat a larger breakfast and lunchand a have a soup orhighprotein calorie drinkfor dinner in the evening. I also informed him that it be very beneficial for him to obtain new dentureswhich would help with the digestive processby not having as large of food boluseswithin his esophagus and stomach. I informed the patient that upper GI did reveal that hisfundoplication remained to be intact and that he does have a very small recurrenthiatalhernia. I informed the patient that we could try a prokinetic agent such as Reglan. I informed them however there is a risk for the development of tardive dyskinesiaas a side effectfrom Reglan that may not be reversibleafter discontinuation of the Reglan.Patient apparently had a similartype of reaction to Risperdalin the past. Pros and cons of trying Reglan was discussed with the patient his . I informed them that it ifhe would try Reglan and began to notice any type of symptoms I wouldimmediately discontinue the Reglan. Patient understood and wished tosee if Reglan would helpwith some of his symptoms. Patient prescribed Reglan 10 mgon twice a day basis. Informed patient that he should undergo repeat EGD at a one year interval. Patient was to return to clinic sooner if problems should arise
--- OUTSIDE RECORDS SUMMARY | 2016-12-23 07:36 | XMS REPORT | Summary of Care ---
Author Author Domenico Harrell M.D. Organization Unknown Address Unknown Phone Unavailable Care Team Providers Care Risk Lead Name Role Phone Julio Cesar Cano, Trudy Unavailable Unavailable Kaushal Cano, YARIEL, ,, A [...] Bilateral impacted cerumen (380.4, H61.23) Status: Active Short of breath on exertion (786.05, R06.02) Status: Active Fatigue (780.79, R53.83) Status: Active Benign essential hypertension (401.1, I10) Status: Active Medications Name Dates Details PriLOSEC 20 MG CPDR Active Zantac 150 Maximum Strength TABS * Refills: 0 Active Fish Oil 1200 MG Oral Capsule * Refills: 0 Active Metoclopramide HCl - 10 MG Oral Tablet TAKE 1 TABLET 4 TIMES DAILY, BEFORE MEALS AND AT BEDTIME. * Quantity: 120 Refills: 0 Kaushal Cano, YARIEL, , , Deon A * Start Active NexIUM 40 MG Oral Capsule Delayed Release TAKE 1 CAPSULE DAILY. * Quantity: 30 Refills: 3 Kaushal Cano, YARIEL, , , Deon A * Start Active Lunesta 3 MG Oral Tablet TAKE 1 TABLET AT BEDTIME NEEDED FOR SLEEP. * Refills: 0 * Start 02-Nov-2016 Active AmLODIPine Besylate 5 MG Oral Tablet TAKE 1 TABLET DAILY. * Refills: 0 * Start 02-Nov-2016 Active Lisinopril 20 MG Oral Tablet TAKE 1 TABLET DAILY. * Refills: 0 * Start 02-Nov-2016 Active Adult Aspirin EC Low Strength 81 MG Oral Tablet Delayed Release TAKE 1 TABLET DAILY. * Refills: 0 * Start 02-Nov-2016 Active Allergies and Adverse Reactions Name Dates Details [...] smoker Vital Signs Date Test Result Details 02-Nov-2016 14:59 BP Systolic 94 mm[Hg] Status: Comments: Location: ; Position: BP Diastolic 52 mm[Hg] Status: Comments: Location: ; Position: Heart Rate 96 /min Status: Comments: Location: ; Height 66 in Status: Weight 165 lb Status: Body Mass Index Calculated 26.63 kg/m2 Status: Body Surface Area Calculated 1.84 m2 Status: Results Date Description Value Details Results not documented Plan of Care Name Dates Details Planned Observations Planned Goals not documented Planned Encounters Appointment; Provider: Domenico Harrell M.D. On 08-Dec-2016 15:30 Instructions Name Dates Details Instructions not documented Encounters Appointment; Jay Jay Kathleen M.D. Encounter Diagnosis: Problem not documented On 20-Sep-2016 14:30 Appointment; Jay Jay Kathleen M.D. Encounter Diagnosis: Problem not documented On 07-Oct-2015 14:45
--- OUTSIDE RECORDS SUMMARY | 2016-12-23 07:36 | XMS REPORT | Continuity of Care Document ---
Author Author Via [facility] Organization [facility] Address Unknown Phone Unavailable Allergies Active Description Code Type Severity Reaction Onset Reported/Identified Relationship to Patient Clinical Status Yes NKDA Drug Allergy N/A N/A Yes No Known Medication Allergies NKMA N/A N/A 06/16/2014 Medications Problems Procedures Results Test Result Range Comprehensive Metabolic Panel (CMP) - 02/11/16 09:24 Albumin 4.3 g/dL 3.4-4.8 Alkaline Phosphatase 101 U/L 40-150 ALT (SGPT) 17 U/L 0-55 Anion Gap 6 NA 3-20 AST (SGOT) 21 U/L 5-34 Bilirubin Total 0.5 mg/dL 0.2-1.2 BUN 15 mg/dL 8-26 Calcium 9.6 mg/dL 8.9-10.5 Chloride 103 mEq/L 99-111 CO2 28 mEq/L 23-31 Creatinine 1.04 mg/dL 0.72-1.25 Globulin 2.6 g/dL 1.8-4.0 Glucose 115 mg/dL 70-99 Potassium 4.3 mEq/L 3.5-5.2 Protein 6.9 g/dL 6.2-8.1 Sodium 137 mEq/L 135-144 eGFR - 02/11/16 09:24 eGFR >60 mL/min >60 TSH with Reflex Free T4 - 02/11/16 09:24 TSH with Reflex Free T4 0.30 uIU/mL 0.35- 4.94 Free T4 - 02/11/16 09:24 Free T4 1.1 ng/dL 0.7-1.5 Encounters ACCT No. Visit Date/Time Discharge Status Pt. Type Provider Facility Loc./Unit Complaint [id number] 06/24/2013 08:06:00 06/24/2013 23 :59:59 CLS Outpatient
--- OUTSIDE RECORDS SUMMARY | 2016-12-23 07:36 | XMS REPORT | Referral Summary ---
Author Author [facility] Organization [facility] Address Unknown Phone Unavailable Care Team Providers Care Pattern Maker Name Role Phone Salas Urena Primary Care Physician [phone] Encounter VC Date(s): 05/17/16 - 05/17/16 [facility] [address] [place] [id number] Discharge Diagnosis: Degenerative joint disease involving multiple joints Discharge Diagnosis: Gastroesophageal reflux disease Discharge Diagnosis: Benign essential HTN Discharge Diagnosis: Insomnia Discharge Diagnosis: Depression Discharge Disposition: 01-Home or Self Care Attending Physician: Domenico Urena MD Admitting Physician: Domenico Urena MD Vital Signs Most recent to 1 oldest [Reference Range]: Temperature Tympanic 36.0 degC [36.6-38.1 degC] *LOW* (05/17/16 8:05 AM) Peripheral Pulse 68 bpm Rate [60-100 bpm] (05/17/16 8:05 AM) Blood Pressure 126/70 mmHg [90-140/60-90 mmHg] (05/17/16 8:05 AM) Problem List Condition Effective Dates Status Health Status Informant Alcoholism(Confirmed Active ) Ibarra's esophagus Active (disorder)(Confirmed ) Chicken Active pox(Confirmed) Generalized Active osteoarthritis (disorder)(Confirmed ) Dysphagia Active (disorder)(Confirmed ) Gastroesophageal Active reflux disease (disorder)(Confirmed ) Head Active trauma(Confirmed) Hearing Active loss(Confirmed) Hiatal 2011 Active hernia(Confirmed) Hip 1989 Active fracture(Confirmed) Injury(Confirmed)1 Active Osteoarthritis(Confi Active rmed) Depression(Confirmed Active ) Colon cancer 2008 Active Screening(Confirmed) 1head trama Allergies, Adverse Reactions, Alerts No Known Medication Allergies Medications amLODIPine 5 mg oral tablet 5 mg 1 tabs, Oral, Daily, # 90 tabs, 3 Refill(s), Pharmacy: [facility] # [id number], 1 tabs Oral Daily Start Date: 05/17/16 Status: Ordered aspirin 81 mg oral tablet 1 tabs, Oral, Daily, # 90 tabs, 0 Refill(s) Start Date: 06/17/14 Status: Ordered cyclobenzaprine 10 mg oral tablet See Instructions, TAKE ONE TABLET BY MOUTH THREE TIMES A DAY NEEDED, # 40 tabs, eRx: [facility] #[id number], TAKE ONE TABLET BY MOUTH THREE TIMES A DAY NEEDED Start Date: 05/06/16 Status: Ordered Fish Oil 1200 mg oral capsule caps, Oral, TID, 0 Refill(s) Start Date: 06/17/14 Status: Ordered lisinopril 20 mg oral tablet See Instructions, TAKE ONE TABLET BY MOUTH DAILY *PT DUE FOR MED CHECK*, # 30 tabs, 3 Refill(s), eRx: [facility] #[id number], TAKE ONE TABLET BY MOUTH DAILY *PT DUE FOR MED CHECK* Start Date: 05/11/16 Status: Ordered Lotrisone 1%-0.05% topical cream 1 kisha, Topical, BID, # 30 g, 0 Refill(s), Pharmacy: [facility] #[id number] Start Date: 11/04/15 Status: Ordered meclizine TID, as needed for dizziness, 0 Refill(s) Start Date: 10/05/15 Status: Ordered metoclopramide 10 mg oral tablet See Instructions, TAKE ONE TABLET BY MOUTH TWICE A DAY, # 60 tabs, 5 Refill(s), eRx: [facility] #[id number], TAKE ONE TABLET BY MOUTH TWICE A DAY Start Date: 04/04/16 Status: Ordered Mobic 7.5 mg oral tablet 7.5 mg 1 tabs, Oral, BID, # 60 tabs, 5 Refill(s), Pharmacy: [facility] # [id number], 1 tabs Oral BID Start Date: 05/17/16 Status: Ordered multivitamin Daily, 0 Refill(s) Start Date: 06/17/14 Status: Ordered NexIUM 20 mg oral delayed release capsule 20 mg 1 caps, Oral, BID, # 60 caps, 5 Refill(s), Pharmacy: [facility] # [id number], 1 caps Oral BID Start Date: 05/17/16 Status: Ordered [place] 5 mg-325 mg oral tablet 1-2 tabs, Oral, q6hr, # 60 tabs, 0 Refill(s) Start Date: 05/17/16 Status: Ordered polyethylene glycol 3350 oral powder for reconstitution See Instructions, MIX 1 CAPFUL (17G) WITH 8 OUNCES OF WATER, JUICE, SODA, COFFEE , OR TEA AND DRINK DAILY, # 527 g, 5 Refill(s), Pharmacy: [facility] # [id number] Start Date: 05/17/16 Status: Ordered Vitamin D3 1000 intl units oral tablet 1 tabs, Oral, Daily, # 30 tabs, 0 Refill(s) Start Date: 06/17/14 Status: Ordered Results No data available for this section Immunizations Vaccine Date Refusal Reason influenza virus vaccine, inactivated 05/17/16 influenza virus vaccine, inactivated 06/07/14 influenza virus vaccine, live 06/28/13 influenza virus vaccine, live 10/06/12 pneumococcal 13-valent conjugate vaccine 05/17/16 tetanus/diphtheria/pertussis, acel(Tdap) 10/12/13 Procedures Procedure Date Related Diagnosis Body Site Esophagogastroduodenoscopy and biopsy1 12/04/15 Esophagogastroduodenoscopy and biopsy2 12/01/14 Esophagogastroduodenoscopy3 2013 Esophagogastroduodenoscopy4 2012 Esophagogastroduodenoscopy 06/2011 Colonoscopy5 04/2009 Bone graft6 1989 Hip replacement1988 Appendectomy 1957 Ricardo fundoplication Vasectomy 1Path: Biopsies positive for barretts with mild dysplasia, no cancer. Repeat EGD in 1 year. 2No Cancer Given th fact Pathology unable to state if Dysplasia present Repeat EGD 1yr. 3with circumferential biopies 4with bx, consistent with Ibarra's, stay on PPI, repeat in 1 year 5noDr. Kaushal moy 6left hip 7left Social History Social History Type Response Smoking Status Former smoker; Type: Cigarettes; Total pack years: 30 Assessment and Plan Extracted from: Title: Office Visit Note Author: Domenico Urena MD Date: 05/17/16 Assessment/Plan 1.Degenerative joint disease involving multiple joints Chronic stable no change in current treatment. Refills on hydrocodone given today. 2.Gastroesophageal reflux disease Chronic stable no change in current treatment recommended. 3.Depression Chronic and stable no change in current treatment recommended 4.Benign essential HTN Blood pressure is reasonably well controlled. Medications and treatments reviewed no changes are recommended. Previous laboratory studies reviewed. Report card reviewed and provided. Follow-up in 3 months. Fasting lab at that time. 5.Insomnia We'll go back to Lunesta and use that ongoingdiscontinue Ambien. Extracted from: Title: Ambulatory Patient Education Author: Domenico Urena MD Date: Preventive Medicine Heart Disease Prevention Heart disease is a leading cause of . There are many things you can do to help prevent heart disease. BE PHYSICALLY ACTIVE Physical activity is good for your heart. It helps control your blood pressure, cholesterol levels, and weight. Try to be physically active every day. Ask your health care provider what activities are best for you. BE A HEALTHY WEIGHT Extra weight can strain your heart and affect your blood pressure and cholesterol levels. Lose weight with diet and exercise if recommended by your health care provider. EAT HEART-HEALTHY FOODS Follow a healthy eating plan as recommended by your health care provider or dietitian. Heart-healthy foods include: High-fiber foods. These include oat bran, oatmeal, and whole-grain breads and cereals. Fruits and vegetables. Avoid: Alcohol. Fried foods. Foods high in saturated fat. These include meats, butter, whole dairy products, shortening, and coconut or palm oil. Salty foods. These include canned food, luncheon meat, salty snacks, and fast food. KEEP YOUR CHOLESTEROL LEVELS UNDER CONTROL Cholesterol is a substance that is used for many important functions. When your cholesterol levels are high, cholesterol can stick to the insides of your blood vessels, making them narrow or clog. This can lead to chest pain (angina) and a heart attack. Keep your cholesterol levels under control as recommended by your health care provider. Have your cholesterol checked at least once a year. Target cholesterol levels (in mg/dL) for most people are: Total cholesterol below 200. LDL cholesterol below 100. HDL cholesterol above 40 in men and above 50 in women. Triglycerides below 150. KEEP YOUR BLOOD PRESSURE UNDER CONTROL Having high blood pressure (hypertension) puts you at risk for stroke and other forms of heart disease. Keep your blood pressure under control as recommended by your health care provider. Ask your health care provider if you need treatment to lower your blood pressure. If you are 1839 years of age, have your blood pressure checked every 35 years. If you are 40 years of age or older, have your blood pressure checked every year. DO NOT USE TOBACCO PRODUCTS Tobacco smoke can damage your heart and blood vessels. Do not use any tobacco products including cigarettes, chewing tobacco, or electronic cigarettes. If you need help quitting, ask your health care provider. TAKE MEDICINES DIRECTED Take medicines only as directed by your health care provider. Ask your health care provider whether you should take an aspirin every day. Taking aspirin can help reduce your risk of heart disease and stroke. FOR MORE INFORMATION To find out more about heart disease, visit the [place] [employer]'s website at www.americanheart.org This information is not intended to replace advice given to you by your health care provider. Make sure you discuss any questions you have with your health care provider. Document Released: 04/04/2005 Document Revised: 09/11/2015 Document Reviewed: [employer] Patient Information 2016 [employer]. No follow up information was provided.
--- OUTSIDE RECORDS SUMMARY | 2016-12-23 07:36 | XMS REPORT | Referral Summary ---
Author Author [facility] Organization [facility] Address Unknown Phone Unavailable Care Team Providers Care Power Plant Engineer Name Role Phone Salas Urena Primary Care Physician [phone] Encounter Date(s): 05/22/15 - 05/22/15 [facility] [address] [place] [id number] Discharge Diagnosis: Degenerative joint disease involving multiple joints Discharge Diagnosis: Gastroesophageal reflux disease Discharge Diagnosis: Left arm numbness Discharge Diagnosis: Ibarra's esophagus Discharge Diagnosis: BPH loc w/o ur obs/LUTS Discharge Disposition: 01-Home or Self Care Attending Physician: Domenico Urena MD Admitting Physician: Domenico Urena MD Vital Signs Most recent to 1 oldest [Reference Range]: Temperature Tympanic 35.1 degC [36.6-38.1 degC] *LOW* (05/22/15 8:08 AM) Peripheral Pulse 76 bpm Rate [60-100 bpm] (05/22/15 8:08 AM) Blood Pressure 142/84 mmHg [90-140/60-90 mmHg] *HI* (05/22/15 8:08 AM) Problem List Condition Effective Dates Status [...] as needed for sleep, [address] [place], # 30 tabs, 0 Refill(s) Start Date: 11/04/15 Status: Ordered amLODIPine 10 mg oral tablet See Instructions, TAKE ONE TABLET BY MOUTH DAILY * PT DUE FOR MED CHECK*, # 30 tabs, 2 Refill(s), eRx: [facility] #[id number], TAKE ONE TABLET BY MOUTH DAILY * PT DUE FOR MED CHECK* Start Date: 11/24/15 Status: Ordered aspirin 81 mg oral tablet 1 tabs, Oral, Daily, # 90 tabs, 0 Refill(s) Start Date: 06/17/14 Status: Ordered cyclobenzaprine 10 mg oral tablet See Instructions, TAKE ONE TABLET BY MOUTH THREE TIMES A DAY NEEDED, # 40 tabs, 1 Refill(s), eRx: [facility] #[id number], TAKE ONE TABLET BY MOUTH THREE TIMES A DAY NEEDED Start Date: 10/19/15 Status: Ordered Fish Oil 1200 mg oral capsule caps, Oral, TID, 0 Refill(s) Start Date: 06/17/14 Status: Ordered lisinopril 20 mg oral tablet See Instructions, TAKE ONE TABLET BY MOUTH DAILY *PT DUE FOR MED CHECK*, # 30 tabs, 2 Refill(s), eRx: [facility] #[id number], TAKE ONE TABLET BY MOUTH DAILY *PT DUE FOR MED CHECK* Start Date: 11/24/15 Status: Ordered Lotrisone 1%-0.05% topical cream 1 kisha, Topical, BID, # 30 g, 0 Refill(s), Pharmacy: [facility] #[id number] Start Date: 11/04/15 Status: Ordered meclizine TID, as needed for dizziness, 0 Refill(s) Start Date: 10/05/15 Status: Ordered Mobic 7.5 mg oral tablet See Instructions, TAKE ONE TABLET BY MOUTH TWICE A DAY, # 60 tabs, 1 Refill(s), eRx: [facility] #[id number], TAKE ONE TABLET BY MOUTH TWICE A DAY Start Date: 09/28/15 Status: Ordered multivitamin Daily, 0 Refill(s) Start Date: 06/17/14 Status: Ordered NexIUM 20 mg oral delayed release capsule 20 mg 1 caps, Oral, BID, # 60 caps, 5 Refill(s), Pharmacy: [facility] # [id number], 1 caps Oral BID Start Date: 11/26/15 Status: Ordered [place] 5 mg-325 mg oral tablet See Instructions, take 1-2 tablets by mouth every 6hours as needed, # 60 tabs, 0 Refill(s) Start Date: 11/04/15 Status: Ordered polyethylene glycol 3350 oral powder for reconstitution See Instructions, MIX 1 CAPFUL (17G) WITH 8 OUNCES OF WATER, JUICE, SODA, COFFEE , OR TEA AND DRINK DAILY, # 527 unknown unit, 5 Refill(s), eRx: [facility] #[id number], MIX 1 CAPFUL (17G) WITH 8 OUNCES OF WATER, JUICE, SODA, COFFEE , OR TEA AND DRINK... Start Date: 06/01/15 Status: Ordered Vitamin D3 1000 intl units oral tablet 1 tabs, Oral, Daily, # 30 tabs, 0 Refill(s) Start Date: 06/17/14 Status: Ordered Results Chemistry Most recent to 1 oldest [Reference Range]: Sodium Lvl [135-144 142 mEq/L mEq/L] (05/22/15 8:45 AM) Potassium Lvl 4.3 mEq/L [3.5-5.2 mEq/L] (05/22/15 8:45 AM) Chloride [99-111 108 mEq/L mEq/L] (05/22/15 8:45 AM) CO2 [23-31 mEq/L] 26 mEq/L (05/22/15 8:45 AM) AGAP [3-20] 8 (05/22/15 8:45 AM) BUN [8-26 mg/dL] 17 mg/dL (05/22/15 8:45 AM) Glucose Lvl [70-99 101 mg/dL mg/dL] *HI* (05/22/15 8:45 AM) Creatinine Lvl 0.94 mg/dL [0.72-1.25 mg/dL] (05/22/15 8:45 AM) eGFR [>60 mL/min] >60 mL/min 1 (05/22/15 8:45 AM) Calcium Lvl 9.5 mg/dL 2 [8.9-10.5 mg/dL] *LOW* (05/22/15 8:45 AM) Albumin Lvl [3.4-4.8 3.8 gm/dL gm/dL] (05/22/15 8:45 AM) Total Protein 6.6 gm/dL [6.2-8.1 gm/dL] (05/22/15 8:45 AM) Globulin [1.8-4.0 2.8 gm/dL gm/dL] (05/22/15 8:45 AM) ALT [0-55 U/L] 18 U/L (05/22/15 8:45 AM) AST [5-34 U/L] 22 U/L (05/22/15 8:45 AM) Alk Phos [40-150 100 U/L U/L] (05/22/15 8:45 AM) Bili Total [0.2-1.2 0.5 mg/dL mg/dL] (05/22/15 8:45 AM) PSA (wihout Reflex 2.3 ng/mL 3 Free) [0.0-6.5 (05/22/15 8:45 AM) ng/mL] Chol [0-199 mg/dL] 195 mg/dL (05/22/15 8:45 AM) Trig [0-149 mg/dL] 137 mg/dL (05/22/15 8:45 AM) HDL [40-84 mg/dL] 36 mg/dL *LOW* (05/22/15 8:45 AM) LDL [0-130 mg/dL] 132 mg/dL *HI* (05/22/15 8:45 AM) VLDL Cholesterol 27 mg/dL [0-28 mg/dL] (05/22/15 8:45 AM) Cardiac Risk 5.4 [0.0-5.7] (05/22/15 8:45 AM) TSH with Reflex Free 0.67 T4 [0.35-4.94] (05/22/15 8:45 AM) 1Result Comment: Multiply eGFR results by 1.21 for race. 2Result Comment: Corrected result; previously reported as 7.7 on 05/22/15 at 13: 03 by I/AUT 3Result Comment: AUA PSA Best Practice Guidelines: Age-Adjusted PSA Values by Ethnic Group Age Range Asians - Caucasians Americans 40-49 0-2.0 0-2.0 0-2.5 50-59 0-3.0 0-4.0 0-3.5 60-69 0-4.0 0-4.5 0-4.5 70-79 0-5.0 0-5.5 0-6.5 Immunizations Vaccine Date Refusal Reason influenza virus [...] Patient Education Author: Domenico Urena MD Date: Family Medicine Ibarra's Esophagus Ibarra's esophagus occurs when the lining of the esophagus is damaged. The esophagus is the tube that carries food from the mouth to the stomach. With Ibarra's esophagus, the lining of the esophagus gets replaced by material that is similar to the lining in the intestines. This process is called intestinal metaplasia. A small number of people with Ibarra's esophagus develop esophageal cancer. CAUSES The exact cause of Ibarra's esophagus is unknown. SYMPTOMS Most people with Ibarra's esophagus do not have symptoms. However, many patients also have gastroesophageal reflux disease (GERD). GERD can cause heartburn, trouble swallowing, and a dry cough. DIAGNOSIS Ibarra's esophagus is diagnosed by an exam called upper gastrointestinal endoscopy. A thin, flexible tube (endoscope) is passed down the esophagus. The endoscope has a light and camera on the end. Your caregiver uses the endoscope to view the inside of the esophagus. A tissue sample may also be taken and examined under a microscope (biopsy). If cancer cells are found during the biopsy, this condition is called dysplasia. TREATMENT If you have no dysplasia or low-grade dysplasia, your caregiver may recommend no treatment or only taking medicines to treat GERD. Sometimes, taking acid- blocking drugs to treat GERD helps improve the tissue affected by Ibarra's esophagus. Your caregiver may also recommend periodic esophageal exams. If you have high-grade dysplasia, treatment may include removing the damaged parts of the esophagus. This can be done by heating, freezing, or surgically removing the tissue. In some cases, surgery may be done to remove most of the esophagus. The stomach is then attached to the remaining portion of the esophagus. HOME CARE INSTRUCTIONS Take acid-blocking drugs for GERD if recommended by your caregiver. Keep all follow-up appointments as directed by your caregiver. You may need periodic esophageal exams. SEEK IMMEDIATE MEDICAL CARE IF: You have chest pain. You have trouble swallowing. You vomit blood or material that looks like coffee grounds. Your stools are bright red or dark. Document Released: 11/10/2004 Document Revised: 02/19/2013 Document Reviewed: [facility] Patient Information 2015 [employer]. This information is not intended to replace advice given to you by your health care provider. Make sure you discuss any questions you have with your health care provider. No follow up information was provided. Extracted from: Title: Office Visit Note Author: Domenico Urena MD Date: 05/22/15 Assessment/Plan Ibarra's esophagus He's having some increased problems with dysphasia think he needs to see Dr. Winter back and consider repeat EGD possible dilatation. Ordered: Office Visit Level 4 Est 88825 BPH loc w/o ur obs/LUTS He has symptoms consistent with BPH. His prostate is enlarged on exam. I offered treatment few would prefer not to have to take more medication. We will check PSA after discussion of the problems and benefits of testing. Ordered: Office Visit Level 4 Est 02019 Prostate Specific Antigen Degenerative joint disease involving multiple joints Chronic relatively stable. I wonder if he doesn't have some cervical osteoarthritis causing some nerve entrapment. We will do nerve conduction studies on the left arm. Ordered: Office Visit Level 4 Est 88394 Gastroesophageal reflux disease See above under parents esophagus. Continue Nexium at the current dosage at this time. Ordered: Office Visit Level 4 Est 67219 Left arm numbness Nerve conduction studies for further evaluation. Laboratory studies as listed. Ordered: Comprehensive Metabolic Panel Lipid Panel Office Visit Level 4 Est 74992 TSH with Reflex Free T4 Orders: HYDROcodone-acetaminophen, See Instructions, take 1-2 tablets by mouth every 6hours as needed, # 60 tabs, 0 Refill(s)
--- OUTSIDE RECORDS SUMMARY | 2016-12-23 07:36 | XMS REPORT | Referral Summary ---
Author Author [facility], [facility] Organization [facility] Address Unknown Phone Unavailable Care Team Providers Care Hydrogeologist Name Role Phone Salas Urena Primary Care Physician [phone] Encounter VC Date(s): 02/11/16 - 02/11/16 [facility]ai [place] [place] [id number] Discharge Diagnosis: Ibarra's esophagus Discharge Diagnosis: Dysphagia (disorder) Discharge Diagnosis: Degenerative joint disease involving multiple joints Discharge Diagnosis: Gastroesophageal reflux disease Discharge Diagnosis: Fatigue Discharge Diagnosis: Benign essential HTN Discharge Disposition: 01-Home or Self Care Attending Physician: Domenico Urena MD Admitting Physician: Domenico Urnea MD Vital Signs Most recent to 1 oldest [Reference Range]: Temperature Tympanic 35.8 degC [36.6-38.1 degC] *LOW* (02/11/16 8:47 AM) Peripheral Pulse 72 bpm Rate [60-100 bpm] (02/11/16 8:47 AM) Respiratory Rate 16 br/min [14-20 br/min] (02/11/16 8:47 AM) Blood Pressure 96/62 mmHg [90-140/60-90 mmHg] (02/11/16 8:47 AM) Problem List Condition Effective Dates Status [...] (once a day), as needed for sleep, [address], # 30 tabs, 0 Refill(s) Start Date: 01/06/16 Status: Ordered amLODIPine 5 mg oral tablet 5 mg 1 tabs, Oral, Daily, # 90 tabs, 3 Refill(s), Pharmacy: [facility] # [id number], 1 tabs Oral Daily Start Date: 02/11/16 Status: Ordered aspirin 81 mg oral tablet 1 tabs, Oral, Daily, # 90 tabs, 0 Refill(s) Start Date: 06/17/14 Status: Ordered cyclobenzaprine 10 mg oral tablet See Instructions, TAKE ONE TABLET BY MOUTH THREE TIMES A DAY NEEDED, # 40 tabs, 1 Refill(s), eRx: [facility] #[id number], TAKE ONE TABLET BY MOUTH THREE TIMES A DAY NEEDED Start Date: 10/19/15 Status: Ordered Fish Oil 1200 mg oral capsule caps, Oral, TID, 0 Refill(s) Start Date: 06/17/14 Status: Ordered lisinopril 20 mg oral tablet See Instructions, TAKE ONE TABLET BY MOUTH DAILY *PT DUE FOR MED CHECK*, # 30 tabs, 2 Refill(s), eRx: [facility] #[id number], TAKE ONE TABLET BY MOUTH DAILY *PT DUE FOR MED CHECK* Start Date: 11/24/15 Status: Ordered Lotrisone 1%-0.05% topical cream 1 kisha, Topical, BID, # 30 g, 0 Refill(s), Pharmacy: [facility] #[id number] Start Date: 11/04/15 Status: Ordered meclizine TID, as needed for dizziness, 0 Refill(s) Start Date: 10/05/15 Status: Ordered Mobic 7.5 mg oral tablet See Instructions, TAKE ONE TABLET BY MOUTH TWICE A DAY, # 60 tabs, 1 Refill(s), eRx: [facility] #[id number], TAKE ONE TABLET BY MOUTH TWICE A DAY Start Date: 09/28/15 Status: Ordered multivitamin Daily, 0 Refill(s) Start Date: 06/17/14 Status: Ordered NexIUM 20 mg oral delayed release capsule 20 mg 1 caps, Oral, BID, # 60 caps, 5 Refill(s), Pharmacy: [facility] # [id number], 1 caps Oral BID Start Date: 11/26/15 Status: Ordered [place] 5 mg-325 mg oral tablet See Instructions, take 1-2 tablets by mouth every 6hours as needed, # 60 tabs, 0 Refill(s) Start Date: 02/11/16 Status: Ordered polyethylene glycol 3350 oral powder for reconstitution See Instructions, MIX 1 CAPFUL (17G) WITH 8 OUNCES OF WATER, JUICE, SODA, COFFEE , OR TEA AND DRINK DAILY, # 527 g, 5 Refill(s), Pharmacy: [facility] # [id number] Start Date: 02/11/16 Status: Ordered Reglan 10 mg oral tablet 10 mg 1 tabs, Oral, BID, # 60 tabs, 3 Refill(s), Pharmacy: [facility] # [id number], 1 tabs Oral BID Start Date: 12/17/15 Status: Ordered Vitamin D3 1000 intl units oral tablet 1 tabs, Oral, Daily, # 30 tabs, 0 Refill(s) Start Date: 06/17/14 Status: Ordered Results Chemistry Most recent to 1 oldest [Reference Range]: Sodium Lvl [135-144 137 mEq/L mEq/L] (02/11/16 9:24 AM) Potassium Lvl 4.3 mEq/L [3.5-5.2 mEq/L] (02/11/16 9:24 AM) Chloride [99-111 103 mEq/L mEq/L] (02/11/16 9:24 AM) CO2 [23-31 mEq/L] 28 mEq/L (02/11/16 9:24 AM) AGAP [3-20] 6 (02/11/16 9:24 AM) BUN [8-26 mg/dL] 15 mg/dL (02/11/16 9:24 AM) Glucose Lvl [70-99 115 mg/dL mg/dL] *HI* (02/11/16 9:24 AM) Creatinine Lvl 1.04 mg/dL [0.72-1.25 mg/dL] (02/11/16 9:24 AM) eGFR [>60 mL/min] >60 mL/min 1 (02/11/16 9:24 AM) Calcium Lvl 9.6 mg/dL [8.9-10.5 mg/dL] (02/11/16 9:24 AM) Albumin Lvl [3.4-4.8 4.3 gm/dL gm/dL] (02/11/16 9:24 AM) Total Protein 6.9 gm/dL [6.2-8.1 gm/dL] (02/11/16 9:24 AM) Globulin [1.8-4.0 2.6 gm/dL gm/dL] (02/11/16 9:24 AM) ALT [0-55 U/L] 17 U/L (02/11/16 9:24 AM) AST [5-34 U/L] 21 U/L (02/11/16 9:24 AM) Alk Phos [40-150 101 U/L U/L] (02/11/16 9:24 AM) Bili Total [0.2-1.2 0.5 mg/dL mg/dL] (02/11/16 9:24 AM) T4 Free [0.7-1.5 1.1 ng/dL ng/dL] (02/11/16 9:24 AM) TSH with Reflex Free 0.30 T4 [0.35-4.94] *LOW* (02/11/16 9:24 AM) 1Result Comment: Multiply eGFR results by 1.21 for race. Immunizations Vaccine Date Refusal Reason influenza virus vaccine, inactivated 06/07/14 influenza virus vaccine, live 06/28/13 influenza virus vaccine, live 10/06/12 tetanus/diphtheria/pertussis, acel(Tdap) 10/12/13 Procedures Procedure Date Related Diagnosis Body Site Esophagogastroduodenoscopy and biopsy1 12/04/15 Esophagogastroduodenoscopy and biopsy2 12/01/14 Esophagogastroduodenoscopy3 2013 Esophagogastroduodenoscopy4 2012 Esophagogastroduodenoscopy 06/2011 Colonoscopy5 04/2009 Bone graft1989 Hip replacement1988 Appendectomy 1957 Ricardo fundoplication Vasectomy 1Path: Biopsies positive for barretts with mild dysplasia, no cancer. Repeat EGD in 1 year. 2No Cancer Given th fact Pathology unable to state if Dysplasia present Repeat EGD 1yr. 3with circumferential biopies 4with bx, consistent with Ibarra's, stay on PPI, repeat in [address] Kaushal callejas 6left hip 7left Social History Social History Type Response Smoking Status Former smoker; Type: Cigarettes; Total pack years: 30 Assessment and Plan Extracted from: Title: Office Visit Note Author: Domenico Urena MD Date: 02/11/16 Assessment/Plan 1.Ibarra's esophagus, Ibarra's esophagus without dysplasia Results of recent EGD reviewed with patient. Confirmed repeat EGD in 1 year. Encouraged continuedcurrent doseof Nexium. Call with problems or difficulties. Ordered: Office Visit Level 4 Est 79112 2.Degenerative joint disease involving multiple joints, Polyosteoarthritis , unspecified Chronic stable no change in treatment plan recommended. Hydrocodone refill today. Ordered: Office Visit Level 4 Est 15661 3.Gastroesophageal reflux disease, Gastro-esophageal reflux disease without esophagitis Chronic stable doing well on current dose of Nexium. Ordered: Office Visit Level 4 Est 59115 4.Benign essential HTN, Essential (primary) hypertension Blood pressure is running on the low side., Reduce amlodipine from 10 mg down to 5 mg daily. Continue other medications without change. Follow-up in 3 months. Ordered: Basic Metabolic Panel Comprehensive Metabolic Panel Office Visit Level 4 Est 62247 5.Dysphagia (disorder), Dysphagia, unspecified Ordered: Office Visit Level 4 Est 98888 6.Fatigue, Other fatigue I've recommended some lab work. This may be related to blood pressures running low we'll see if it improves with the change in medication as listed above. If lab is abnormal will let them know. Ordered: Basic Metabolic Panel Comprehensive Metabolic Panel TSH with Reflex Free T4 Orders: amLODIPine, 5 mg 1 tabs, Oral, Daily, # 90 tabs, 3 Refill(s), Pharmacy : [facility] #[id number], 1 tabs Oral Daily HYDROcodone-acetaminophen, See Instructions, take 1-2 tablets by mouth every 6hours as needed, # 60 tabs, 0 Refill(s) polyethylene glycol 3350, See Instructions, MIX 1 CAPFUL (17G) WITH 8 OUNCES OF WATER, JUICE, SODA, COFFEE, OR TEA AND DRINK DAILY, # 527 g, 5 Refill(s), Pharmacy: [facility] #[id number]
--- OUTSIDE RECORDS SUMMARY | 2016-12-23 07:36 | XMS REPORT | Summary of Care ---
Author Author Domenico Harrell M.D. Organization Unknown Address Unknown Phone Unavailable Care Team Providers Care Cdl Driver Name Role Phone Julio Cesar Cano, Trudy Unavailable Unavailable Kaushal Cano, YARIEL, ,, A Unavailable Unavailable Israel Arevalo Unavailable Unavailable Unavailable Unavailable Functional Status Name [...] breath on exertion (786.05, R06.02) Status: Active Benign essential hypertension (401.1, I10) Status: Active Fatigue (780.79, R53.83) Status: Active Medications Name Dates Details Fish Oil 1200 MG Oral Capsule Active Metoclopramide HCl - 10 MG Oral [...] History of Appendectomy History of Hip Surgery CP Echo Ordered: 08-Dec-2016 CP Stress Echo Ordered: 08-Dec-2016 Immunization Name Dates Details Immunizations not documented Family History Name Dates Details Family history of Acute Myocardial Infarction (V17.3) Status: Active Name Dates Details Family history of Cancer Status: Active Social History Name Dates Details - Status: Name Dates Details Former smoker Vital Signs Date Test Result Details 08-Dec-2016 15:35 BP Systolic 124 mm[Hg] Status: Comments: Location: ; Position: BP Diastolic 86 mm[Hg] Status: Comments: Location: ; Position: Heart Rate 84 /min Status: Comments: Location: ; Weight 165 lb Status: Body Mass Index Calculated 26.63 kg/m2 Status: Body Surface Area Calculated 1.84 m2 Status: Results Date Description Value Details Results not documented Plan of Care Name Dates Details Planned Observations Planned Goals not documented Instructions Name Dates Details Instructions not documented Encounters Appointment; Domenico Harrell M.D. Encounter Diagnosis: Problem not documented On 02-Nov-2016 14:45 Appointment; Jay Jay Kathleen M.D. Encounter Diagnosis: Problem not documented On 20-Sep-2016 14:30 Appointment; Jay Jay Kathleen M.D. Encounter Diagnosis: Problem not documented On 07-Oct-2015 14:45
--- OUTSIDE RECORDS SUMMARY | 2016-12-23 07:36 | XMS REPORT | Referral Summary ---
Author Author [facility], [facility] Organization [facility] Address Unknown Phone Unavailable Care Team Providers Care Movie Critic Name Role Phone Salas Urena Primary Care Physician [phone] Encounter Date(s): 08/15/16 - 08/15/16 [facility] Desai Newton [address] [place] [id number] Discharge Diagnosis: Osteoarthritis Discharge Diagnosis: Benign essential HTN Discharge Diagnosis: Ibarra's esophagus Discharge Diagnosis: Gastroesophageal reflux disease Discharge Diagnosis: Hyperlipemia Discharge Disposition: 01-Home or Self Care Attending Physician: Domenico Urena MD Admitting Physician: Domenico Urena MD Vital Signs Most recent to 1 oldest [Reference Range]: Temperature Tympanic 36.2 degC [36.6-38.1 degC] *LOW* (08/15/16 8:46 AM) Peripheral Pulse 88 bpm Rate [60-100 bpm] (08/15/16 8:46 AM) Respiratory Rate 14 br/min [14-20 br/min] (08/15/16 8:46 AM) Blood Pressure 130/82 mmHg [90-140/60-90 mmHg] (08/15/16 8:46 AM) Problem List Condition Effective Dates Status [...] Daily, # 90 tabs, 3 Refill(s), Pharmacy: [facility] # [id number], 1 tabs Oral Daily Start Date: 05/17/16 Status: Ordered aspirin 81 mg oral tablet 1 tabs, Oral, Daily, # 90 tabs, 0 Refill(s) Start Date: 06/17/14 Status: Ordered cyclobenzaprine 10 mg oral tablet See Instructions, TAKE ONE TABLET BY MOUTH THREE TIMES A DAY NEEDED, # 40 tabs, eRx: [facility] #[id number], TAKE ONE TABLET BY MOUTH THREE TIMES A DAY NEEDED Start Date: 05/30/16 Status: Ordered Fish Oil 1200 mg oral capsule caps, Oral, TID, 0 Refill(s) Start Date: 06/17/14 Status: Ordered lisinopril 20 mg oral tablet See Instructions, TAKE ONE TABLET BY MOUTH DAILY *PT DUE FOR MED CHECK*, # 30 tabs, 3 Refill(s), eRx: [facility] #[id number], TAKE ONE TABLET BY MOUTH DAILY *PT DUE FOR MED CHECK* Start Date: 05/11/16 Status: Ordered Lotrisone 1%-0.05% topical cream 1 kisha, Topical, BID, # 30 g, 0 Refill(s), Pharmacy: [facility] #[id number] Start Date: 11/04/15 Status: Ordered Lunesta 3 mg oral tablet 3 mg 1 tabs, Oral, Bedtime (once a day), as needed for insomnia, # 30 tabs, 0 Refill(s) Start Date: 05/19/16 Stop Date: 05/19/17 Status: Ordered meclizine TID, as needed for dizziness, 0 Refill(s) Start Date: 10/05/15 Status: Ordered metoclopramide 10 mg oral tablet See Instructions, TAKE ONE TABLET BY MOUTH TWICE A DAY, # 60 tabs, 5 Refill(s), eRx: [facility] #[id number], TAKE ONE TABLET BY MOUTH TWICE A DAY Start Date: 04/04/16 Status: Ordered Mobic 7.5 mg oral tablet 7.5 mg 1 tabs, Oral, BID, # 60 tabs, 5 Refill(s), Pharmacy: [facility] # [id number], 1 tabs Oral BID Start Date: 05/17/16 Status: Ordered multivitamin Daily, 0 Refill(s) Start Date: 06/17/14 Status: Ordered NexIUM 20 mg oral delayed release capsule 20 mg 1 caps, Oral, BID, # 60 caps, 5 Refill(s), Pharmacy: [facility] # [id number], 1 caps Oral BID Start Date: 05/17/16 Status: Ordered Oneco 5 mg-325 mg oral tablet 1-2 tabs, Oral, q6hr, # 60 tabs, 0 Refill(s) Start Date: 05/17/16 Status: Ordered polyethylene glycol 3350 oral powder for reconstitution See Instructions, MIX 1 CAPFUL (17G) WITH 8 OUNCES OF WATER, JUICE, SODA, COFFEE , OR TEA AND DRINK DAILY, # 527 g, 5 Refill(s), Pharmacy: [facility] # [id number] Start Date: 05/17/16 Status: Ordered Vitamin D3 1000 intl units oral tablet 1 tabs, Oral, Daily, # 30 tabs, 0 Refill(s) Start Date: 06/17/14 Status: Ordered Results No data available for this section Immunizations Given and Recorded Vaccine Date Status Refusal Reason influenza virus vaccine, inactivated 05/17/16 Given influenza virus vaccine, inactivated 06/07/14 Recorded influenza virus vaccine, live 06/28/13 Given influenza virus vaccine, live 10/06/12 Given pneumococcal 13-valent conjugate vaccine 05/17/16 Given tetanus/diphtheria/pertussis, acel(Tdap) 10/12/13 Recorded Procedures Procedure Date Related Diagnosis Body Site [...] Visit Note Author: Domenico Urena MD Date: 08/15/16 Assessment/Plan 1.Ibarra's esophagus Chronic stable on current treatment. Continueclose follow-up. Last EGD was done earlier this year and is planned for next year. 2.Gastroesophageal reflux disease Chronic stable on current treatment no changes recommended. Follow-up in 6 months. 3.Osteoarthritis Chronic and stable medications and treatments reviewedno changes are recommended. I encouraged him to continue to stay active. 4.Benign essential HTN Blood pressures adequately controlled. Medications and treatments reviewed no changes are recommended. Recent laboratory studies reviewed. Follow-up in 6 months. 5.Hyperlipemia Chronic relatively stable no change in current treatment is recommended. Recent laboratory studies reviewed and cholesterol levels are running higher. I encouraged him to follow a low-fatdiet. We'll recheck in 6 months. Addendum by I did do a prostate exam today. Prostate is smooth is nontender moderately enlarged no Romel, nodularity or firmness noted. Domenico Marina MD on August 15, 2016 09:05:31 [employer]
--- OUTSIDE RECORDS SUMMARY | 2016-12-23 07:36 | XMS REPORT | Referral Summary ---
Author Author [facility], [facility] Organization [facility] Address Unknown Phone Unavailable Care Team Providers Care Sewage Screen Operator Name Role Phone Salas Urena Primary Care Physician [phone] Encounter Date(s): 10/05/15 - 10/05/15 [facility] [address] [place] [id number] Discharge Diagnosis: Acute sinusitis Discharge Diagnosis: Benign hypertension Discharge Disposition: 01-Home or Self Care Attending Physician: Domenico Urena MD Admitting Physician: Domenico Urena MD Vital Signs Most recent to 1 oldest [Reference Range]: Temperature Tympanic 36.0 degC [36.6-38.1 degC] *LOW* (10/05/15 10:02 AM) Peripheral Pulse 88 bpm Rate [60-100 bpm] (10/05/15 10:02 AM) Respiratory Rate 24 br/min [14-20 br/min] *HI* (10/05/15 10:02 AM) Blood Pressure 106/80 mmHg [90-140/60-90 mmHg] (10/05/15 10:02 AM) Problem List Condition Effective Dates Status [...] Alerts No Known Medication Allergies Medications amLODIPine Oral, Daily, 0 Refill(s) Start Date: 10/05/15 Status: Ordered aspirin 81 mg oral tablet 1 tabs, Oral, Daily, # 90 tabs, 0 Refill(s) Start Date: 06/17/14 Status: Ordered Augmentin XR Oral, q12hr, 0 Refill(s) Start Date: 10/05/15 Status: Ordered cyclobenzaprine 10 mg oral tablet See Instructions, TAKE ONE TABLET BY MOUTH THREE TIMES A DAY NEEDED, # 40 tabs, 1 Refill(s), eRx: [facility] #[id number], TAKE ONE TABLET BY MOUTH THREE TIMES A DAY NEEDED Start Date: 09/24/15 Status: Ordered Fish Oil 1200 mg oral capsule caps, Oral, TID, 0 Refill(s) Start Date: 06/17/14 Status: Ordered lisinopril Oral, Daily, 0 Refill(s) Start Date: 10/05/15 Status: Ordered Lunesta 3 mg oral tablet 3 mg 1 tabs, Oral, Bedtime (once a day), as needed for insomnia, [facility] [phone], # 30 tabs, 0 Refill(s) Start Date: 06/04/15 Status: Ordered meclizine TID, as needed for dizziness, 0 Refill(s) Start Date: 10/05/15 Status: Ordered Mobic 7.5 mg oral tablet See Instructions, TAKE ONE TABLET BY MOUTH TWICE A DAY, # 60 tabs, 1 Refill(s), eRx: [facility] #[id number], TAKE ONE TABLET BY MOUTH TWICE A DAY Start Date: 09/28/15 Status: Ordered multivitamin Daily, 0 Refill(s) Start Date: 06/17/14 Status: Ordered NexIUM 20 mg oral delayed release capsule See Instructions, TAKE ONE CAPSULE BY MOUTH TWICE A DAY, # 60 caps, 5 Refill(s) , eRx: [facility] #[id number], TAKE ONE CAPSULE BY MOUTH TWICE A DAY Start Date: 06/01/15 Status: Ordered [place] 5 mg-325 mg oral tablet See Instructions, take 1-2 tablets by mouth every 6hours as needed, # 60 tabs, 0 Refill(s) Start Date: 05/22/15 Status: Ordered polyethylene glycol 3350 oral powder for reconstitution See Instructions, MIX 1 CAPFUL (17G) WITH 8 OUNCES OF WATER, JUICE, SODA, COFFEE , OR TEA AND DRINK DAILY, # 527 unknown unit, 5 Refill(s), eRx: [facility] #[id number], MIX 1 CAPFUL (17G) WITH 8 OUNCES [...] Visit Note Author: Domenico Urena MD Date: 10/05/15 Assessment/Plan Acute pansinusitis, unspecified, Acute sinusitis Overall this seems to be improving his congestion is less and dizziness is resolved. I encouraged him to finish out his Augmentin. If he has recurring symptoms or further problems he'll let us now. Ordered: Office Visit Level 3 Est 08965 Benign hypertension, Essential (primary) hypertension Blood pressure appears to be well controlled today with the addition of amlodipine. I've asked him to follow-up in one month for recheck. She has trouble prior to that or any questions or concerns he'll let us know. Ordered: Office Visit Level 3 Est 65240
[2016-12-23 07:43] VITALS: BP 164/97; PULSE 71; RESP 13; TEMP 97.5; O2SAT 95; Ht 165.1 cm; Wt 73.8 kg
--- NOTE | 2016-12-23 09:22 | ANESPREOP ---
Anesthesia Record Date and Time DATE: 12/23/16 TIME: 09:20 Pre-Op Diagnosis Barretts esoh. Proposed Surgical Procedure EGD Allergies: Coded Allergies: No Known Drug Allergies (Verified Allergy, Unknown, 12/23/16) Ht/Wt/BMI Height: 5 ' 5.00 " Weight: 73.800 kg BMI: 27.1 kg/m2 Vital Signs Date Time Temp Pulse Resp B/P Pulse Ox O2 Delivery O2 Flow Rate FiO2 12/23/16 07:43 97.5 71 13 164/97 95 Room Air Medications Inpatient Medications Current Medications Medications (Trade) Dose Ordered Sig/Gini Start Time Stop Time Status Last Admin Dose Admin Lactated Ringer's (Lactated Ringers) 1,000 ml @ 30 mls/hr Q24H 12/23/16 07:00 12/23/16 08:30 30 MLS/HR Aspirin (Aspir 81) 81 Mg Tablet.dr, 1 TAB PO DAILY, (Reported) Last Taken: on 12/09/16 Cholecalciferol (Vitamin D3) (Vitamin D3) 1,000 Unit Capsule, 1 CAP PO DAILY, (Reported) Last Taken: on 12/09/16 Cyclobenzaprine Hcl (Flexeril) 10 Mg Tablet, 10 MG PO DAILY PRN for MUSCLE PAIN, (Reported) Last Taken: on 12/16/16 Esomeprazole Mag Trihydrate (Nexium) 20 Mg/Packet Suspdr.pkt, 20 MG PO BID, (Reported) Last Taken: on 12/23/16 0600 Eszopiclone (Lunesta) 3 Mg Tablet, 1 TAB PO HS PRN for INSOMNIA, (Reported) Last Taken: on 12/22/16 2000 Fish Oil/Dha/Epa (Fish Oil 1,200 mg Fish Oil) 1 Each Capsule, 1,200 MG PO DAILY, (Reported) Last Taken: on 12/09/16 Hydrocodone/Acetaminophen ([facility] 5-325 Tablet) 5- 325 Tablet, 1-2 TAB PO Q6HPRN PRN for PAIN, (Reported) Last Taken: on Unknown Date & Time Lisinopril (Lisinopril) 20 Mg Tablet, 1 TAB PO DAILY, (Reported) Last Taken: on 12/23/16 0600 Meclizine HCl (Meclizine HCl) 25 Mg Tablet, 25 MG PO TID PRN for PRN ORDERS, (Reported) Take 1 tablet, by mouth, 2 times a day. Last Taken: on Unknown Date & Time Meloxicam (Mobic) 7.5 Mg Tablet, 7.5 MG PO BID, (Reported) Last Taken: on 12/09/16 Metoclopramide HCl (Reglan) 10 Mg Tablet, 10 MG PO Q6HR PRN for NAUSEA, (Reported) Last Taken: on 12/23/16 0600 Multivitamin (Multi-Day Vitamins) 1 Each Tablet , 1 TAB PO DAILY, (Reported) Last Taken: on 12/09/16 Polyethylene Glycol 3350 (Miralax) 17 Gm Powd.pack, 17 G PO DAILY PRN for CONSTIPATION, (Reported) Take 17 Grams (1 capful), by mouth, once a day. Last Taken: on 12/22/16 0700 Discontinued Medications Amlodipine Besylate (Amlodipine Besylate) 10 Mg Tablet, 1 TAB PO DAILY, ( Reported) Cholecalciferol (Vitamin D) 1,000 Unit Capsule, 1,000 UNIT PO DAILY, (Reported) Fish Oil/[place]-3 Fatty Acids ([place] 3 Fish Oil 1,000 Mg Cap) 1 Cap Capsule, 1 CAP PO DAILY, (Reported) Currently on Beta [place]: No Medical/Surgical History Anesthesia PMH: Reports: *Hypertension, Arthritis (OA), Hiatal Hernia (HX, HAS HAD IVAN FUNDOPLICATION), Reflux, Denies: *Angina, *Diabetes, *Dyspnea, *IA, Anesthesia Reactions (NO AIRWAY ISSUES KNOWN), Asthma, CHF, COPD, CVA/Stroke/TIA , Cancer, Clotting Problems, Deep Vein Thrombosis, Glaucoma, Hepatitis, Malignant Hyperthermia, Pneumonia, Renal Disease, Seizures, Sleep Apnea, Thyroid Disease, Tuberculosis Smoking Status: Former smoker Has pt. smoked today?: No Use Chewing Tobacco?: No Second Hand Exposure: No Substance Use Type: does not use Substance last used: unknown Alcohol Intake: none, former alcohol drinker Last Drink: unknown Past Surgical History Orthopedic Surgeries: Yes - L HIP REPLACEMENT Abdominal Surgeries: Yes - APPY, IVAN FUNDOPLICATION Genitourinary Surgeries: No Cardiac Surgeries: No Endocrine Surgeries: No Reproductive Surgeries: Yes - VASECTOMY Neurological Surgeries: No Ear Surgeries: No Nose Surgeries: No Throat Surgeries: Yes - SEVERAL EGD'S Other Surgeries: Yes - COLONOSCOPIES,BONE GRAFT Anesthesia Adverse Reactions: FOUND none Family Hx of Anesthesia Advers: none Hx of Motion Sickness: No Pertinent Findings EKG Rhythm: Sinus Rhythm Physical Exam Respiratory: Bilat breath sounds equal, Lungs clear Cardiovascular: FOUND Regular rate, rhythm, FOUND No murmur Airway Assessment Mallampati Score: II TMD: 3 Fingerbreadths Neck Extension: Good Overall Assessment: No Airway Concerns ASA: 2 Plan Anesthesia Plan: TIVA Discussion Discussed risks/options/alternatives of anesthesia and questions answered. Patient consents. Nursing pain assessment noted. Present: Spouse Attestation Statement Prior to the delivery of any anesthetic medication, I examined the patient, developed the plan, obtained the patient's consent and discussed the risk and benefits of the procedure with the patient/guardian. HEATHER KIDD CRNA Dec 23, 2016 09:22
[2016-12-23] MEDS ORDERED: LIDOCAINE VISCOUS 2% Oral Soln 15ml UD ONE (09:51)
[2016-12-23 10:23] VITALS: BP 120/65; PULSE 75; RESP 14; TEMP 97.5; O2SAT 94
[2016-12-23 10:30] VITALS: BP 128/68; PULSE 85; RESP 15; O2SAT 93
--- NOTE | 2016-12-23 10:39 | ANESPO ---
Post-Op Note Date 12/23/16 Time: 10:37 Status Pt Participated in Evaluation: Pt participated in person Vital Signs Date Time Temp Pulse Resp B/P Pulse Ox O2 Delivery O2 Flow Rate FiO2 12/23/16 10:30 85 15 128/68 93 Room Air 12/23/16 10:23 97.5 Respiratory Function: Airway patent, Regular respirations Cardiovascular Function: Regular pulse Mental Status: Alert/oriented Pain Level Intensity: 0 Hydration: Taking po fluids, IV infusing Complications during Recovery None apparent Post-Anesthesia Notes pt. luciano. well Follow-Up Instructions Instructions Per Surgeon Additional Information none HEATHER KIDD CRNA Dec 23, 2016 10:39
[2016-12-23 10:40] VITALS: BP 123/67; PULSE 75; RESP 14; O2SAT 96
[2016-12-23 10:50] VITALS: BP 128/81; PULSE 74; RESP 15; O2SAT 94
--- NOTE | 2016-12-23 19:41 | OPNOTEF ---
DATE OF SERVICE 12/23/2016 SURGEON Lenny Winter MD PREOPERATIVE DIAGNOSIS Personal history for Ibarra's metaplasia with low-grade dysplasia. POSTOPERATIVE DIAGNOSES Personal history for Ibarra's metaplasia with low-grade dysplasia, ongoing endoscopic evidence indicative for Ibarra's metaplasia. PROCEDURE Esophagogastroduodenoscopy with circumferential biopsies from distal esophagus at various lengths via cold biopsy technique. ANESTHESIA TIVA BRIEF HISTORY/INDICATIONS Mr. Fuller is a 71-year-old gentleman who is very well known to my surgical practice. Several years ago I met the patient as a result of severe gastroesophageal reflux disease. He did undergo endoscopic and radiographic evaluation as well as manometry. In summary, he was found have a paraesophageal hernia with associated poor peristalsis of the esophagus. He did undergo previous repair of this paraesophageal hernia with a partial fundoplication. The patient has known history for Ibarra's with low-grade dysplasia. He presents today to undergo followup endoscopy. For completeness please refer to notes included in the patient's chart. FINDINGS Upon upper endoscopy the patient was found to have ongoing endoscopic evidence for Ibarra's metaplasia. There appeared to be a slight recurrence of a portion of his paraesophageal hernia. Fortunately, I did not see any type of underlying neoplastic process involving the distal esophagus. Stomach and duodenum were otherwise within normal limits. NARRATIVE OF PROCEDURE After informed consent was obtained the patient was brought to the endoscopy suite and placed upon the table in left lateral decubitus position. The patient subsequently underwent total intravenous anesthesia by the nurse md do resident urgent care at my request. Formal time-out was then completed. Next, an Olympus gastroscope was inserted into the oral hypopharynx and subsequently into the esophagus under direct visualization. Gastroscope was advanced through the esophagus, stomach, pylorus, duodenal bulb, second portion of the duodenum. Scope was then slowly withdrawn. First and second portions of the duodenum were within normal limits. No evidence of duodenitis or ulcerations was noted. Scope was drawn back to the prepyloric region and antrum. Again, no mucosal abnormalities were noted. J-maneuver was then performed. One could still see some spiraling of the gastric rugae indicative of his prior fundoplication. There did perhaps appear to be a slight component of recurrence of his hiatal hernia. Scope was allowed to straighten and was withdrawn back to the GE junction. The GE junction/squamocolumnar junction was quite irregular in nature. Photos were obtained for documentation purposes. Below the squamocolumnar junction one could see several islands of normal-appearing squamous epithelium within columnar mucosa. Multiple biopsies were obtained at various lengths from the distal esophagus in a circumferential fashion via cold biopsy technique. Once these biopsies had been completed, the scope was slowly withdrawn. The remaining esophageal mucosa was found to be within normal limits. It should be noted that there was some residual food/particulate matter involving the distal esophagus indicative of his known history for poor peristalsis. Additionally it should be noted that there was no endoscopic evidence for marked distal esophagitis. There was no evidence for ulcerations or marked erythema of the mucosa. Will await biopsy results from today's EGD and proceed accordingly with further recommendations thereafter. [facility]
== END 2016-12-23 11:02 | disposition home or self-care (01) ==
LOC: SCU 07:31
PROVIDERS: ATTEND Surgery
DX: Z09 Encounter for follow-up examination after completed treatment for conditions other than malignant neoplasm (principal); K22.70 Barrett's esophagus without dysplasia; K21.0 Gastro-esophageal reflux disease with esophagitis; Z87.19 Personal history of other diseases of the digestive system
CPT/HCPCS: 43239; J7120; 88305